=== PATIENT | male | born 1955 | race Caucasian/White ===

== ENCOUNTER → 2018-02-11 07:40 | Outpatient (CLI) | payer OTHER, SELFPAY ==
[2018-02-11 08:03] LABS: Add Manual Diff / Slide Review NO; Basophils Percent Auto 0.9 % (0-2); Hematocrit 43.7 % (41-53); Hemoglobin 14.8 g/dL (13.5-17.5); Lymphocytes Percent Auto 33.4 % (25-40); Mean Corpuscular HGB Conc 33.8 % (30-36); Mean Corpuscular Volume 88.7 fL (80-100); Monocytes Percent Auto 9.1 % (3-14); Neutrophils Absolute Auto 3600 /uL (3000-5900); Neutrophils Percent Auto 55.6 % (50-75); Platelet Count 252 X10^3/uL (150-400); Red Blood Cell Count 4.93 X10^6/uL (4.5-5.9); Red Cell Distribution Width 13.1 % (11.6-14.8); White Blood Cell Count 6.4 X10^3/uL (4.5-11.0)
[2018-02-11 09:27] LABS: Alanine Aminotransferase 27 IU/L (21-72); Albumin 4.4 g/dL (3.5-5.0); Albumin Globulin Ratio 1.6 (1.0-2.8); Alkaline Phosphatase 70 U/L (38-126); Aspartate Aminotransferase 23 IU/L (17-59); Bilirubin Total 0.5 mg/dL (0.2-1.3); Blood Urea Nitrogen 18 mg/dL (9-20); Calcium 9.4 mg/dL (8.4-10.2); Carbon Dioxide 32 mmol/L (22-32); Chloride 105 mmol/L (98-107); Cholesterol 166 mg/dL (140-199); Estimated Glomerular Filt Rate > 60.0 mL/min (>60); Globulin 2.7 g/dL (1.7-4.1); Glucose 89 mg/dL (80-110); HDL Cholesterol 57 mg/dL (40-60); HEMOLYSIS < 15 (0-50); LDL Cholesterol Calculated 93 mg/dL (<100); Potassium 5.3 mmol/L (3.4-5.1); Sodium 146 mmol/L (137-145); Total Protein 7.1 g/dL (6.3-8.2); Triglycerides 82 mg/dL (35-150)
[2018-02-11 09:57] LABS: Prostate Specific Antigen Scrn 7.65 ng/mL (0.1-4.0)
== END ==
PROVIDERS: PCP Family Medicine; Visit Provider Family Medicine
DX: E78.5 Hyperlipidemia, unspecified (principal); I10 Essential (primary) hypertension; N40.0 Benign prostatic hyperplasia without lower urinary tract symptoms; R97.20 Elevated prostate specific antigen [PSA]
CPT/HCPCS: 36415; 80053; 80061; 84443; 85025; G0103

== ENCOUNTER 2018-04-12 17:07 | Observation (INO) | payer OTHER, SELFPAY ==
[2018-04-12 17:11] VITALS: BP 148/86; PULSE 89; RESP 18; TEMP 36.8; O2SAT 98; BMI 25.2
--- NOTE | 2018-04-12 17:36 | ED.GIBLEED ---
HPI - GI Bleed <Shyla Elder PA-C - Last Filed: 04/12/18 17:38> General Chief complaint: GI Bleed Stated complaint: blood in bowel movement Time Seen by Provider: 04/12/18 17:36 Related Data Home Medications Medication Instructions Recorded Confirmed simvastatin 40 mg PO BEDTIME 04/12/18 04/12/18 Previous Rx's Medication Instructions Recorded clobetasol 0.05 % topical cream 0.05 % TOPICAL BID #30 gm 02/20/18 lisinopril 40 mg tablet 40 mg PO DAILY #90 tab 02/20/18 tamsulosin 0.4 mg capsule 0.4 mg PO QDAY #90 cap 02/20/18 Allergies Allergy/AdvReac Type Severity Reaction Status Date / Time No Known Drug Allergies Allergy Verified 04/12/18 17:15 <Cherelle Jackson DO - Last Filed: 04/12/18 19:55> General Source: patient Mode of arrival: ambulatory Limitations: no limitations History of Present Illness HPI Narrative: Patient is a 62 year old, who presents with rectal bleeding. He does have a history of colon polyps. He has had 2 episodes. 1 was just after dinner and the other was in the ED. He has felt well all day today. No fever chills nausea vomiting or abdominal pain. He has never had rectal bleeding in the past. He does get colonoscopies every 5 years he has family history of polyps and he has had polyps removed himself. But has never experienced any bleeding. He denies any dizziness lightheadedness or shortness of breath. He is not on any anti-platelet or anticoagulation medication MD complaint: gross hematochezia Onset (ago): hour(s) Severity: mild Relieving factors: none Exacerbating factors: none <DO Hermila Baer Last Filed: 04/12/18 19:55> Review of Systems All systems reviewed & are unremarkable except as noted in HPI and below Constitutional Denies chills, Denies fever(s), Denies lethargy and Denies weakness Cardiovascular Denies chest pain, Denies syncope, Denies irregular heart rhythm, Denies lightheadedness, Denies palpitations, Denies dyspnea and Denies orthopnea Respiratory Denies cough, Denies hemoptysis and Denies dyspnea Gastrointestinal Gastrointestinal: Reports as per HPI Musculoskeletal Denies back pain, Denies muscle weakness, Denies numbness and Denies tingling Integumentary/Breasts Denies pruritus, Denies erythema, Denies rash and Denies wounds Neurologic Denies syncope, Denies numbness, Denies tingling and Denies weakness Endocrine Denies palpitations Exam <ALMAZ Wyman Last Filed: 04/12/18 17:38> Initial Vital Signs Initial Vital Signs: Vital Signs Temperature 98.3 F 04/12/18 17:11 Pulse Rate 89 04/12/18 17:11 Respiratory Rate 18 04/12/18 17:11 Blood Pressure 148/86 H 04/12/18 17:11 Pulse Oximetry 98 04/12/18 17:11 <Cherelle Jackson DO - Last Filed: 04/12/18 19:55> Initial Vital Signs Initial Vital Signs: Vital Signs Temperature 98.3 F 04/12/18 17:11 Pulse Rate 89 04/12/18 17:11 Respiratory Rate 18 04/12/18 17:11 Blood Pressure 148/86 H 04/12/18 17:11 Pulse Oximetry 98 04/12/18 17:11 Const General: cooperative, healthy appearing and comfortable Nutritional Appearance: average body habitus Orientation: alert, awake and oriented x3 Eyes General: appearance normal, both eyes and all related structures Neck Neck: normal visual inspection, full ROM and no meningeal signs Chest Chest: normal inspection of the chest Resp Effort & Inspection: able to speak in complete sentences Auscultation: clear to auscultation bilaterally, no crackles, no rales and no rhonchi Cardio Rate: regular rate Rhythm: regular rhythm Heart Sounds: S1 normal and S2 normal GI Palpation: soft, No guarding, No rigid and No tender Skin General: no rashes or lesions noted, No jaundice and No petechiae Neuro General: alert, oriented x3, gait normal and no focal motor deficits Speech: speech normal Extrem General: normal to inspection, No clubbing and No edema Course <ALMAZ Wyman Last Filed: 04/12/18 17:38> Orders Ordered: ED Orders 04/12/18 17:50 Complete Blood Count AUTO DIFF Stat Comprehensive Metabolic Panel Stat Partial Thromboplastin Time Stat Prothrombin Time INR Stat Type and Screen Stat 04/12/18 17:55 Urine Microscopic Stat 04/12/18 18:17 Lactate (Lactic Acid) Stat Discontinued Medications Ondansetron HCl (Zofran) 4 mg IV NOW ONE Stop: 04/12/18 17:50 Last Admin: 04/12/18 18:17 Dose: Pantoprazole Sodium (Protonix) 40 mg IV NOW ONE Stop: 04/12/18 17:50 Last Admin: 04/12/18 18:17 Dose: 40 mg Vital Signs - 8 hr 04/12/18 17:11 04/12/18 18:03 04/12/18 19:19 Temperature 98.3 F Pulse Rate 89 82 75 Respiratory Rate 18 16 16 Blood Pressure 148/86 H Blood Pressure [Left Arm] 137/89 138/77 Pulse Oximetry 98 95 97 <Cherelle Jackson DO - Last Filed: 04/12/18 19:55> Orders Ordered: ED Orders 04/12/18 17:50 Complete Blood Count AUTO DIFF Stat Comprehensive Metabolic Panel Stat Partial Thromboplastin Time Stat Prothrombin Time INR Stat Type and Screen Stat 04/12/18 17:55 Urine Microscopic Stat 04/12/18 18:17 Lactate (Lactic Acid) Stat Discontinued Medications Ondansetron HCl (Zofran) 4 mg IV NOW ONE Stop: 04/12/18 17:50 Last Admin: 04/12/18 18:17 Dose: Pantoprazole Sodium (Protonix) 40 mg IV NOW ONE Stop: 04/12/18 17:50 Last Admin: 04/12/18 18:17 Dose: 40 mg Vital Signs - 8 hr 04/12/18 17:11 04/12/18 18:03 04/12/18 19:19 Temperature 98.3 F Pulse Rate 89 82 75 Respiratory Rate 18 16 16 Blood Pressure 148/86 H Blood Pressure [Left Arm] 137/89 138/77 Pulse Oximetry 98 95 97 MDM - GI Bleed <Shyla Elder PA-C - Last Filed: 04/12/18 17:38> Lab Data Result diagrams: 04/12/18 17:50 04/12/18 17:50 Lab Results 04/12/18 04/12/18 04/12/18 Range/Units 17:50 17:50 17:50 WBC 8.0 (4.5-11.0) X10^3/uL RBC 4.76 (4.5-5.9) X10^6/uL Hgb 14.4 (13.5-17.5) g/dL Hct 41.8 (41-53) % MCV 87.9 (80-100) fL MCH 30.3 (26-34) PG MCHC 34.5 (30-36) % RDW 13.2 (11.6-14.8) % Plt Count 272 (150-400) X10^3/uL Neut % (Auto) 59.5 (50-75) % Lymph % (Auto) 28.4 (25-40) % [place] % (Auto) 8.9 (3-14) % Eos % (Auto) 2.0 (2-4) % Baso % (Auto) 1.2 (0-2) % Neut # (Auto) 4800 (1619-6104) /uL PT 12.3 (10.1-12.7) SECONDS INR 1.1 (0.9-1.3) APTT 30 (26.4-36.2) SECONDS Sodium 141 (137-145) mmol/L Potassium 4.0 (3.4-5.1) mmol/L Chloride 104 (98-107) mmol/L Carbon Dioxide 26 (22-32) mmol/L BUN 15 (9-20) mg/dL Creatinine 1.00 (0.66-1.25) mg/dL Estimated GFR > 60.0 (>60) mL/min BUN/Creatinine Ratio 15.0 (6-22) Glucose 106 (80-110) mg/dL Lactate (0.7-2.1) mmol/L Calcium 8.8 (8.4-10.2) mg/dL Total Bilirubin 0.5 (0.2-1.3) mg/dL AST 35 (17-59) IU/L ALT 30 (21-72) IU/L Alkaline Phosphatase 89 (38-126) U/L Total Protein 7.3 (6.3-8.2) g/dL Albumin 4.4 (3.5-5.0) g/dL Globulin 2.9 (1.7-4.1) g/dL Albumin/Globulin Ratio 1.5 (1.0-2.8) Urine RBC (0-5/HPF) Urine WBC (0-5/HPF) Ur Squamous Epith Cells Urine Bacteria (None) Ur Culture Indicated? Micro UA Comment Blood Type Antibody Screen 04/12/18 04/12/18 04/12/18 Range/Units 17:50 17:55 18:17 WBC (4.5-11.0) X10^3/uL RBC (4.5-5.9) X10^6/uL Hgb (13.5-17.5) g/dL Hct (41-53) % MCV (80-100) fL MCH (26-34) PG MCHC (30-36) % RDW (11.6-14.8) % Plt Count (150-400) X10^3/uL Neut % (Auto) (50-75) % Lymph % (Auto) (25-40) % [place] % (Auto) (3-14) % Eos % (Auto) (2-4) % Baso % (Auto) (0-2) % Neut # (Auto) (9984-1174) /uL PT (10.1-12.7) SECONDS INR (0.9-1.3) APTT (26.4-36.2) SECONDS Sodium (137-145) mmol/L Potassium (3.4-5.1) mmol/L Chloride (98-107) mmol/L Carbon Dioxide (22-32) mmol/L BUN (9-20) mg/dL Creatinine (0.66-1.25) mg/dL Estimated GFR (>60) mL/min BUN/Creatinine Ratio (6-22) Glucose (80-110) mg/dL Lactate 1.3 (0.7-2.1) mmol/L Calcium (8.4-10.2) mg/dL Total Bilirubin (0.2-1.3) mg/dL AST (17-59) IU/L ALT (21-72) IU/L Alkaline Phosphatase (38-126) U/L Total Protein (6.3-8.2) g/dL Albumin (3.5-5.0) g/dL Globulin (1.7-4.1) g/dL Albumin/Globulin Ratio (1.0-2.8) Urine RBC 0-1/hpf (0-5/HPF) Urine WBC 0-1/hpf (0-5/HPF) Ur Squamous Epith Cells 0-1 /hpf Urine Bacteria None seen (None) Ur Culture Indicated? Cult not indicated Micro UA Comment Microscopic normal Blood Type O Positive Antibody Screen Negative Urine Dip Bedside Urine Glucose Negative Bedside Urine Bilirubin - Negative Bedside Urine Ketone - Negative Urine Specific [place] 1.015 Bedside Urine Occult Blood + Bedside Urine pH 6.0 Bedside Urine Protein - Negative Bedside Urine Urobilinogen - Negative Bedside Urine Nitrite - Negative Bedside Urine Leukocytes - Negative Esterase <Cherelle Renetta, DO - Last Filed: 04/12/18 19:55> Lab Data Attestation: I reviewed the patient's lab results. Lab Results 04/12/18 04/12/18 04/12/18 Range/Units 17:50 17:50 17:50 WBC 8.0 (4.5-11.0) X10^3/uL RBC 4.76 (4.5-5.9) X10^6/uL Hgb 14.4 (13.5-17.5) g/dL Hct 41.8 (41-53) % MCV 87.9 (80-100) fL MCH 30.3 (26-34) PG MCHC 34.5 (30-36) % RDW 13.2 (11.6-14.8) % Plt Count 272 (150-400) X10^3/uL Neut % (Auto) 59.5 (50-75) % Lymph % (Auto) 28.4 (25-40) % [place] % (Auto) 8.9 (3-14) % Eos % (Auto) 2.0 (2-4) % Baso % (Auto) 1.2 (0-2) % Neut # (Auto) 4800 (0330-9208) /uL PT 12.3 (10.1-12.7) SECONDS INR 1.1 (0.9-1.3) APTT 30 (26.4-36.2) SECONDS Sodium 141 (137-145) mmol/L Potassium 4.0 (3.4-5.1) mmol/L Chloride 104 (98-107) mmol/L Carbon Dioxide 26 (22-32) mmol/L BUN 15 (9-20) mg/dL Creatinine 1.00 (0.66-1.25) mg/dL Estimated GFR > 60.0 (>60) mL/min BUN/Creatinine Ratio 15.0 (6-22) Glucose 106 (80-110) mg/dL Lactate (0.7-2.1) mmol/L Calcium 8.8 (8.4-10.2) mg/dL Total Bilirubin 0.5 (0.2-1.3) mg/dL AST 35 (17-59) IU/L ALT 30 (21-72) IU/L Alkaline Phosphatase 89 (38-126) U/L Total Protein 7.3 (6.3-8.2) g/dL Albumin 4.4 (3.5-5.0) g/dL Globulin 2.9 (1.7-4.1) g/dL Albumin/Globulin Ratio 1.5 (1.0-2.8) Urine RBC (0-5/HPF) Urine WBC (0-5/HPF) Ur Squamous Epith Cells Urine Bacteria (None) Ur Culture Indicated? Micro UA Comment Blood Type Antibody Screen 04/12/18 04/12/18 04/12/18 Range/Units 17:50 17:55 18:17 WBC (4.5-11.0) X10^3/uL RBC (4.5-5.9) X10^6/uL Hgb (13.5-17.5) g/dL Hct (41-53) % MCV (80-100) fL MCH (26-34) PG MCHC (30-36) % RDW (11.6-14.8) % Plt Count (150-400) X10^3/uL Neut % (Auto) (50-75) % Lymph % (Auto) (25-40) % [place] % (Auto) (3-14) % Eos % (Auto) (2-4) % Baso % (Auto) (0-2) % Neut # (Auto) (5559-2470) /uL PT (10.1-12.7) SECONDS INR (0.9-1.3) APTT (26.4-36.2) SECONDS Sodium (137-145) mmol/L Potassium (3.4-5.1) mmol/L Chloride (98-107) mmol/L Carbon Dioxide (22-32) mmol/L BUN (9-20) mg/dL Creatinine (0.66-1.25) mg/dL Estimated GFR (>60) mL/min BUN/Creatinine Ratio (6-22) Glucose (80-110) mg/dL Lactate 1.3 (0.7-2.1) mmol/L Calcium (8.4-10.2) mg/dL Total Bilirubin (0.2-1.3) mg/dL AST (17-59) IU/L ALT (21-72) IU/L Alkaline Phosphatase (38-126) U/L Total Protein (6.3-8.2) g/dL Albumin (3.5-5.0) g/dL Globulin (1.7-4.1) g/dL Albumin/Globulin Ratio (1.0-2.8) Urine RBC 0-1/hpf (0-5/HPF) Urine WBC 0-1/hpf (0-5/HPF) Ur Squamous Epith Cells 0-1 /hpf Urine Bacteria None seen (None) Ur Culture Indicated? Cult not indicated Micro UA Comment Microscopic normal Blood Type O Positive Antibody Screen Negative Urine Dip Bedside Urine Glucose Negative Bedside Urine Bilirubin - Negative Bedside Urine Ketone - Negative Urine Specific [place] 1.015 Bedside Urine Occult Blood + Bedside Urine pH 6.0 Bedside Urine Protein - Negative Bedside Urine Urobilinogen - Negative Bedside Urine Nitrite - Negative Bedside Urine Leukocytes - Negative Esterase MDM Narrative Medical decision making narrative: Patient has a history of colon polyps with 2 episodes of bleeding this evening. He is hemodynamically stable. No further episodes while in the ED. Hemoglobin and hematocrit do not require blood transfusion at this time. Lactate is also within normal limits. He is given Protonix and Zofran. I have discussed case with Dr. Kent who agrees to observation. He will write orders. Discharge Plan Departure Patient Disposition: Admitted as Observation Clinical Impression: Acute GI bleeding Admit Date/Time: 04/12/18 19:15 Admit Provider: Scott Kent
[2018-04-12 18:03] VITALS: BP 137/89; PULSE 82; RESP 16; O2SAT 95
[2018-04-12 18:08] LABS: Add Manual Diff / Slide Review NO; Basophils Percent Auto 1.2 % (0-2); Hematocrit 41.8 % (41-53); Hemoglobin 14.4 g/dL (13.5-17.5); Lymphocytes Percent Auto 28.4 % (25-40); Mean Corpuscular HGB Conc 34.5 % (30-36); Mean Corpuscular Hemoglobin 30.3 PG (26-34); Mean Corpuscular Volume 87.9 fL (80-100); Monocytes Percent Auto 8.9 % (3-14); Neutrophils Absolute Auto 4800 /uL (3000-5900); Neutrophils Percent Auto 59.5 % (50-75); Platelet Count 272 X10^3/uL (150-400); Red Blood Cell Count 4.76 X10^6/uL (4.5-5.9); Red Cell Distribution Width 13.2 % (11.6-14.8)
[2018-04-12 18:16] LABS: INR 1.1 (0.9-1.3); Prothrombin Time 12.3 SECONDS (10.1-12.7)
[2018-04-12] MEDS: PANTOPRAZOLE 40 MG VIAL IV (18:17)
[2018-04-12 18:19] LABS: Alanine Aminotransferase 30 IU/L (21-72); Albumin 4.4 g/dL (3.5-5.0); Albumin Globulin Ratio 1.5 (1.0-2.8); Alkaline Phosphatase 89 U/L (38-126); Aspartate Aminotransferase 35 IU/L (17-59); Bilirubin Total 0.5 mg/dL (0.2-1.3); Blood Urea Nitrogen 15 mg/dL (9-20); Calcium 8.8 mg/dL (8.4-10.2); Carbon Dioxide 26 mmol/L (22-32); Chloride 104 mmol/L (98-107); Estimated Glomerular Filt Rate > 60.0 mL/min (>60); Globulin 2.9 g/dL (1.7-4.1); Glucose 106 mg/dL (80-110); HEMOLYSIS 23 (0-50); PTT Partial Thromboplastin Tim 30 SECONDS (26.4-36.2); Sodium 141 mmol/L (137-145); Total Protein 7.3 g/dL (6.3-8.2)
--- NOTE | 2018-04-12 18:22 | ED_ITS ---
HPI - GI Bleed General Chief complaint: GI Bleed Stated complaint: blood in bowel movement Time Seen by Provider: 04/12/18 17:36 Source: patient Mode of arrival: ambulatory Limitations: no limitations History of Present Illness HPI Narrative: Patient is a 62-year-old male presenting with blood in stool. He has a history of colon polyps he has colonoscopy every 3-5 years. He occasionally has on polyps removed. He is not on any anti-platelet or anticoagulation medication. He was feeling fine all day today. After dinner he thought he needed to use the restroom when he had some incontinence noted that it was mostly a blood. He denies any abdominal pain nausea vomiting or fevers. He is not dizzy or lightheaded no chest pain or heart palpitations. He had a 2nd episode once he arrived to the emergency department is dark. MD complaint: gross hematochezia Onset (ago): hour(s) Pain Consistency: intermittent Severity: mild Related Data Home Medications Medication Instructions Recorded Confirmed simvastatin 40 mg PO BEDTIME 04/12/18 04/12/18 Previous Rx's Medication Instructions Recorded clobetasol 0.05 % topical cream 0.05 % TOPICAL BID #30 gm 02/20/18 lisinopril 40 mg tablet 40 mg PO DAILY #90 tab 02/20/18 tamsulosin 0.4 mg capsule 0.4 mg PO QDAY #90 cap 02/20/18 Allergies Allergy/AdvReac Type Severity Reaction Status Date / Time No Known Drug Allergies Allergy Verified 04/12/18 17:15 Review of Systems Review of Systems All systems reviewed & are unremarkable except as noted in HPI and below Constitutional Denies chills, Denies fever(s), Denies lethargy and Denies weakness ENT Ears, Nose, Mouth, and Throat: Denies vertigo and Denies dizziness Cardiovascular Denies chest pain, Denies irregular heart rhythm, Denies lightheadedness, Denies palpitations and Denies orthopnea Gastrointestinal Gastrointestinal: Reports as per HPI Musculoskeletal Denies back pain, Denies muscle weakness, Denies numbness and Denies tingling Integumentary/Breasts Denies pruritus, Denies erythema, Denies rash and Denies wounds Neurologic Denies vertigo, Denies dizziness, Denies numbness, Denies tingling and Denies weakness Endocrine Denies palpitations [facility] Medical History Colon polyps (Chronic ~2000) Hay fever (Chronic) Hemorrhoid (Chronic ~1989) High cholesterol (Chronic) Kidney stones (Chronic ~1987) Retinal detachment (Chronic ~2006) Sleep apnea (Chronic) Chicken pox (Resolved) Measles (Resolved) Mumps (Resolved) Plantar warts (Resolved) Shingles (Resolved ~1997) Surgical History Anesthesia (Resolved) H/O prostate biopsy (Resolved ~02/05/10) Lipoma (Resolved ~02/07/96) History of tonsillectomy Family History Child Age: 36 Raynauds syndrome Father Age: 91 Dementia Mother Cancer Heart disease Hypertension High cholesterol Sister Age: 69 High cholesterol Social History household members: spouse Smoking Status: Never smoker alcohol intake: current Exam Initial Vital Signs Initial Vital Signs: Vital Signs Temperature 98.3 F 04/12/18 17:11 Pulse Rate 89 04/12/18 17:11 Respiratory Rate 18 04/12/18 17:11 Blood Pressure 148/86 H 04/12/18 17:11 Pulse Oximetry 98 04/12/18 17:11 Const General: cooperative and comfortable Orientation: alert, awake and oriented x3 Eyes General: appearance normal, both eyes and all related structures Neck Neck: normal visual inspection and full ROM Chest Chest: normal inspection of the chest Resp Effort & Inspection: able to speak in complete sentences Auscultation: clear to auscultation bilaterally, no rales and no rhonchi Cardio Rate: regular rate Rhythm: regular rhythm Heart Sounds: S1 normal and S2 normal GI Palpation: soft, No rigid and No tender Skin General: no rashes or lesions noted, No mottling, No purpura, No pallor and warm Neuro General: alert, awake, oriented x3 and CN's II-XI intact bilaterally Extrem General: full ROM, no clubbing, cyanosis or edema, no pedal edema and no calf tenderness Course Orders Ordered: ED Orders 04/12/18 17:50 Complete Blood Count AUTO DIFF Stat Comprehensive Metabolic Panel Stat Partial Thromboplastin Time Stat Prothrombin Time INR Stat Type and Screen Stat 04/12/18 17:55 Urine Microscopic Stat 04/12/18 18:17 Lactate (Lactic Acid) Stat 04/12/18 20:19 Education, smoking cessation ONGOING 04/13/18 05:00 Basic Metabolic Panel Routine Complete Blood Count AUTO DIFF Routine Acetaminophen (Tylenol) 650 mg PO Q6HR PRN PRN Reason: As Needed for Fever/Mild Pain Sodium Chloride (Normal Saline 0.45%) 1,000 mls @ 100 mls/hr IV CONT ANGELLA Last Admin: 04/12/18 20:36 Dose: 100 mls/hr Lisinopril (Zestril) 40 mg PO DAILY ANGELLA Ondansetron HCl (Zofran) 4 mg IV Q8HR PRN PRN Reason: Nausea And Vomiting Pantoprazole Sodium (Protonix) 40 mg IV BID ANGELLA Simvastatin (Zocor) 40 mg PO BEDTIME ANGELLA Sodium Chloride (Normal Saline 0.9% Flush) 10 ml IV PRN PRN PRN Reason: Flush Tamsulosin HCl (Flomax) 0.4 mg PO DAILY ANGELLA Discontinued Medications Ondansetron HCl (Zofran) 4 mg IV NOW ONE Stop: 04/12/18 17:50 Last Admin: 04/12/18 18:17 Dose: Pantoprazole Sodium (Protonix) 40 mg IV NOW ONE Stop: 04/12/18 17:50 Last Admin: 04/12/18 18:17 Dose: 40 mg Vital Signs - 8 hr 04/12/18 17:11 04/12/18 18:03 04/12/18 19:19 Temperature 98.3 F Pulse Rate 89 82 75 Respiratory Rate 18 16 16 Blood Pressure 148/86 H Blood Pressure [Left Arm] 137/89 138/77 Pulse Oximetry 98 95 97 04/12/18 20:08 04/12/18 20:24 Temperature Pulse Rate 77 75 Respiratory Rate 16 16 Blood Pressure 140/84 146/92 H Blood Pressure [Left Arm] Pulse Oximetry 96 97 MDM - GI Bleed Lab Data Attestation: I reviewed the patient's lab results. Result diagrams: 04/12/18 17:50 04/12/18 17:50 Lab Results 04/12/18 04/12/18 04/12/18 Range/Units 17:50 17:50 17:50 WBC 8.0 (4.5-11.0) X10^3/uL RBC 4.76 (4.5-5.9) X10^6/uL Hgb 14.4 (13.5-17.5) g/dL Hct 41.8 (41-53) % MCV 87.9 (80-100) fL MCH 30.3 (26-34) PG MCHC 34.5 (30-36) % RDW 13.2 (11.6-14.8) % Plt Count 272 (150-400) X10^3/uL Neut % (Auto) 59.5 (50-75) % Lymph % (Auto) 28.4 (25-40) % [place] % (Auto) 8.9 (3-14) % Eos % (Auto) 2.0 (2-4) % Baso % (Auto) 1.2 (0-2) % Neut # (Auto) 4800 (6413-1086) /uL PT 12.3 (10.1-12.7) SECONDS INR 1.1 (0.9-1.3) APTT 30 (26.4-36.2) SECONDS Sodium 141 (137-145) mmol/L Potassium 4.0 (3.4-5.1) mmol/L Chloride 104 (98-107) mmol/L Carbon Dioxide 26 (22-32) mmol/L BUN 15 (9-20) mg/dL Creatinine 1.00 (0.66-1.25) mg/dL Estimated GFR > 60.0 (>60) mL/min BUN/Creatinine Ratio 15.0 (6-22) Glucose 106 (80-110) mg/dL Lactate (0.7-2.1) mmol/L Calcium 8.8 (8.4-10.2) mg/dL Total Bilirubin 0.5 (0.2-1.3) mg/dL AST 35 (17-59) IU/L ALT 30 (21-72) IU/L Alkaline Phosphatase 89 (38-126) U/L Total Protein 7.3 (6.3-8.2) g/dL Albumin 4.4 (3.5-5.0) g/dL Globulin 2.9 (1.7-4.1) g/dL Albumin/Globulin Ratio 1.5 (1.0-2.8) Urine RBC (0-5/HPF) Urine WBC (0-5/HPF) Ur Squamous Epith Cells Urine Bacteria (None) Ur Culture Indicated? Micro UA Comment Blood Type Antibody Screen 04/12/18 04/12/18 04/12/18 Range/Units 17:50 17:55 18:17 WBC (4.5-11.0) X10^3/uL RBC (4.5-5.9) X10^6/uL Hgb (13.5-17.5) g/dL Hct (41-53) % MCV (80-100) fL MCH (26-34) PG MCHC (30-36) % RDW (11.6-14.8) % Plt Count (150-400) X10^3/uL Neut % (Auto) (50-75) % Lymph % (Auto) (25-40) % [place] % (Auto) (3-14) % Eos % (Auto) (2-4) % Baso % (Auto) (0-2) % Neut # (Auto) (0762-0888) /uL PT (10.1-12.7) SECONDS INR (0.9-1.3) APTT (26.4-36.2) SECONDS Sodium (137-145) mmol/L Potassium (3.4-5.1) mmol/L Chloride (98-107) mmol/L Carbon Dioxide (22-32) mmol/L BUN (9-20) mg/dL Creatinine (0.66-1.25) mg/dL Estimated GFR (>60) mL/min BUN/Creatinine Ratio (6-22) Glucose (80-110) mg/dL Lactate 1.3 (0.7-2.1) mmol/L Calcium (8.4-10.2) mg/dL Total Bilirubin (0.2-1.3) mg/dL AST (17-59) IU/L ALT (21-72) IU/L Alkaline Phosphatase (38-126) U/L Total Protein (6.3-8.2) g/dL Albumin (3.5-5.0) g/dL Globulin (1.7-4.1) g/dL Albumin/Globulin Ratio (1.0-2.8) Urine RBC 0-1/hpf (0-5/HPF) Urine WBC 0-1/hpf (0-5/HPF) Ur Squamous Epith Cells 0-1 /hpf Urine Bacteria None seen (None) Ur Culture Indicated? Cult not indicated Micro UA Comment Microscopic normal Blood Type O Positive Antibody Screen Negative Urine Dip Bedside Urine Glucose Negative Bedside Urine Bilirubin - Negative Bedside Urine Ketone - Negative Urine Specific [place] 1.015 Bedside Urine Occult Blood + Bedside Urine pH 6.0 Bedside Urine Protein - Negative Bedside Urine Urobilinogen - Negative Bedside Urine Nitrite - Negative Bedside Urine Leukocytes - Negative Esterase MDM Narrative Medical decision making narrative: Patient is hemodynamically stable. No further episodes of GI bleeding in the ED. BUN and creatinine ratio within normal limits do not suspect upper GI bleed at this time. Although he has been given Protonix and Zofran. Based on his history of colon polyps reasonable to admit patient to observation possible colonoscopy. Patient says that he is due for and some of 2018. Dr. Kent has been obtained patient's symptoms test results. Agrees with observation. Discharge Plan Departure Patient Disposition: Admitted as Observation Clinical Impression: Acute GI bleeding Discharge Date/Time: 04/12/18 20:14 Interventions: ED Discharge Assessment Last Done: 04/12/18 20:08 Admit Date/Time: 04/12/18 19:15 Admit Provider: Scott Kent
[2018-04-12 18:37] LABS: Bacteria Urine None Seen
[2018-04-12 18:38] LABS: Lactate (Lactic Acid) 1.3 mmol/L (0.7-2.1)
[2018-04-12 18:41] LABS: Culture Indicated Urine Cult Not Indicated; RBC Urine 0-1/HPF (0-5/HPF); Squamous Epithelial Cell Urine 0-1 /HPF; Urine Comments Microscopic Normal; WBC Urine 0-1/HPF (0-5/HPF)
[2018-04-12 19:19] VITALS: BP 138/77; PULSE 75; RESP 16; O2SAT 97
[2018-04-12 20:08] VITALS: BP 140/84; PULSE 77; RESP 16; O2SAT 96
[2018-04-12 20:24] VITALS: BP 146/92; PULSE 75; RESP 16; O2SAT 97
[2018-04-12] MEDS: SODIUM CHLORIDE 0.45% 1,000 ML 100 ML IV (20:36)
[2018-04-12 20:39] VITALS: BMI 25.6
--- NOTE | 2018-04-12 21:27 | PC.NURSE ---
ADMISSION received pt via [place], accompanied by ED CRUSHING MACHINE OPERATOR at approximately 2020. A&Ox3, plewsasant and cooperative with care. modified independent with ADLs. last bloody stool in ED. pt without complaints, denies any N/V or abdominal pain/discomfort. tele monitoring maintained. oriented pt to room. call light within reach.
[2018-04-12] MEDS: SIMVASTATIN 40 MG TABLET PO (21:42)
[2018-04-12] MEDS: TAMSULOSIN 0.4 MG CAPSULE PO (21:43)
[2018-04-13] VITALS (9 sets, daily range): BP systolic 126–144; BP diastolic 80–92; PULSE 66–76; RESP 15–20; TEMP 36.6–36.9; O2SAT 95–98
--- NOTE | 2018-04-13 01:39 | PC.NURSE ---
[employer] Officer Note: 0000: Pt sleeping; not disturbed at this time. IV in place in rt AC with 1/2ns infusing at 100cc/hr. 0130: Awake, sba to bathroom. Alert, oriented X3. Steady on his feet. Pt did not have bowel movement or any rectal bleeding. Voided. Pt denies pain.
[2018-04-13 05:48] LABS: Add Manual Diff / Slide Review NO; Basophils Percent Auto 1.3 % (0-2); Eosinophils Percent Auto 2.3 % (2-4); Hematocrit 38.4 % (41-53); Hemoglobin 12.9 g/dL (13.5-17.5); Lymphocytes Percent Auto 30.6 % (25-40); Mean Corpuscular HGB Conc 33.7 % (30-36); Mean Corpuscular Hemoglobin 29.7 PG (26-34); Mean Corpuscular Volume 88.3 fL (80-100); Monocytes Percent Auto 11.1 % (3-14); Neutrophils Absolute Auto 4100 /uL (3000-5900); Neutrophils Percent Auto 54.7 % (50-75); Platelet Count 236 X10^3/uL (150-400); Red Blood Cell Count 4.34 X10^6/uL (4.5-5.9); Red Cell Distribution Width 13.1 % (11.6-14.8); White Blood Cell Count 7.5 X10^3/uL (4.5-11.0)
[2018-04-13 05:56] LABS: BUN Creatinine Ratio 13.3 (6-22); Blood Urea Nitrogen 12 mg/dL (9-20); Calcium 8.2 mg/dL (8.4-10.2); Carbon Dioxide 28 mmol/L (22-32); Chloride 105 mmol/L (98-107); Estimated Glomerular Filt Rate > 60.0 mL/min (>60); Glucose 93 mg/dL (80-110); HEMOLYSIS < 15 (0-50); Sodium 140 mmol/L (137-145)
[2018-04-13] MEDS: SODIUM CHLORIDE 0.45% 1,000 ML 100 ML IV (07:41)
--- NOTE | 2018-04-13 09:10 | PM.HP.1 ---
History of Present Illness Date Patient Seen: 04/13/18 Time Patient Seen: 09:11 Chief complaint: blood in bowel movement Narrative: Patient presented to the [facility] Emergency Department on the day of admission with complaints of blood in the stool. Patient knows he has colonic polyps in receives colonoscopy periodically because of this. He has had polyps removed. Last colonoscopy was January 2014. No diverticular disease was noted on that colonoscopy per the report. Previous colonoscopy in 2008 also did not list diverticular disease as a finding. He had some rectal urgency went to the bathroom and noticed it was mostly blood. Denies any abdominal pain nausea vomiting fevers chills. Denies any dizziness lightheadedness etc. Patient had a 2nd episode of blood in the toilet while in the emergency department. He has had 2 more small volume bleeds each 1 darker than the last. Current material in the hat in the toilet is sort of the standard black current jelly consistency and appearance Patient History Medical History Allergic rhinitis, unspecified (Chronic 01/09/11) History of adenomatous polyp of colon (Inactive) Hay fever (Chronic) Sleep apnea (Chronic) Right-sided sensorineural hearing loss (Chronic) Macular degeneration (Chronic) Essential hypertension (Chronic) Hyperlipidemia (Chronic 01/09/11) Benign prostatic hyperplasia (Chronic 01/10/11) Elevated prostate specific antigen (PSA) (Chronic 02/19/17) History of kidney stones (Inactive) Chicken pox (Resolved) Hemorrhoid (Resolved ~1989) Kidney stones (Resolved ~1987) Measles (Resolved) Mumps (Resolved) Plantar warts (Resolved) Retinal detachment (Resolved ~2006) Shingles (Resolved ~1997) Surgical History Anesthesia (Resolved) H/O prostate biopsy (Resolved ~02/05/10) Lipoma (Resolved ~02/07/96) History of tonsillectomy Family & Social History Family History: Reviewed 04/13/18 by Scott Kent MD Social History: household members spouse Prior Living Arrangements House Safety & Behavioral: Feels Safe in Current Yes Environment Been Physically Hurt or No Threatened By a Person Suicidal Ideation Description None Suicide Plan Description No Plan Tobacco & Substance use: Smoking Status Never smoker alcohol intake current alcohol intake frequency a few times a month Substance Use Type does not use Meds Home Medications Medication Instructions Recorded Confirmed Type clobetasol 0.05 % topical cream 0.05 % TOPICAL BID #30 gm 02/20/18 Rx lisinopril 40 mg tablet 40 mg PO DAILY #90 tab 02/20/18 04/12/18 Rx tamsulosin 0.4 mg capsule 0.4 mg PO QDAY #90 cap 02/20/18 04/12/18 Rx simvastatin 40 mg PO BEDTIME 04/12/18 04/12/18 History Allergies Allergy/AdvReac Type Severity Reaction Status Date / Time No Known Drug Allergies Allergy Verified 04/12/18 17:15 Review of Systems Constitutional Constitutional: Denies excessive sweating, Denies fever(s), Denies headache(s), Denies weakness, Denies weight gain and Denies weight loss Eyes Eyes: Denies change in vision, Denies itchy eyes, Denies loss of vision and Denies other visual disturbances ENT Ears, Nose, Mouth, and Throat: No headache(s) and No neck pain Cardiovascular Cardiovascular: Denies chest pain, Denies fainting, Denies fast heart rate, Denies irregular heart rhythm, Denies rapid, pounding, or irregular heartbeat, Denies shortness of breath, Denies shortness of breath with activity and Denies slow heart rate Respiratory Respiratory: Denies dyspnea and Denies dyspnea on exertion Gastrointestinal Gastrointestinal: Denies abdominal pain, Reports hematochezia, Reports change in bowel habits, Denies heartburn, Denies nausea, Denies vomiting and Denies hematemesis Genitourinary Genitourinary: Denies hematuria, Denies difficulty urinating and Denies urinary frequency Musculoskeletal Musculoskeletal: Denies abnormal gait, Denies myalgias, Denies arthralgias, Denies limited range of motion and Denies neck pain Integumentary/Breasts Skin/Breast: Denies bleeding lesions, Denies change in pigmentation, Denies changing lesions, Denies new lesions, Denies rash, Denies skin swelling, Denies sores and Denies jaundice Neurologic Neurologic: Denies abnormal gait, Denies behavioral changes, Denies confusion, Denies syncope, Denies headache(s), Denies loss of vision, Denies memory loss and Denies weakness Psychiatric Psychiatric: Denies behavioral changes, Denies change in appetite, Denies confusion, Denies difficulty concentrating, Denies auditory hallucinations, Denies memory loss, Denies mood swings and Denies suicidal ideation Endocrine Endocrine: Denies excessive sweating and Denies palpitations Hematologic/Lymphatic Hematologic/Lymphatic: Denies easy bleeding, Denies easy bruising and Denies lymphadenopathy Allergic/Immunologic Allergic/Immunologic: Denies itchy eyes Exam Vital Signs (past 8 hours): - 04/13/18 01:45 04/13/18 04:34 04/13/18 07:38 Temperature 98.1 F 98.2 F 97.9 F Pulse Rate 66 71 76 Respiratory Rate 20 20 16 Blood Pressure 127/80 144/90 H 140/92 H Pulse Oximetry 98 96 96 04/13/18 07:53 Temperature Pulse Rate Respiratory Rate Blood Pressure Pulse Oximetry 97 Oxygen Delivery Method Room Air Oxygen Flow Rate 0 Const General: cooperative, healthy appearing, comfortable, well developed and well groomed Nutritional Appearance: well nourished Orientation: alert, awake and oriented x3 HENMT Head: normocephalic, atraumatic, No cyanosis of lips/distal nose, No raccoon eyes and No periorbital ecchymosis Ears: hearing grossly normal bilaterally and external ears normal Nose: external nose normal and nares normal Face and sinus: normal facial exam and face symmetric Mouth: oral mucosae normal, lip normal and tongue normal Eyes Alignment and Position: alignment normal Periorbital: periorbital findings normal Eyelids: eyelids normal Conjunctivae: conjunctivae normal Sclera: sclerae normal Cornea: corneas normal Pupils: PERRL EOM: EOM intact bilaterally Neck Neck: normal visual inspection, full ROM, trachea midline and No anterior neck swelling Thyroid: not diffusely enlarged Carotids: normal carotid upstroke Lymphatic: No lymphadenopathy Chest Chest: normal inspection of the chest, No crepitus and No tenderness Breast inspection: normal inspection of the breasts Resp Effort & Inspection: normal respiratory effort, able to speak in complete sentences, no audible wheezes, no cough, no retractions and not tachypneic Auscultation: clear to auscultation bilaterally, no rales, no rhonchi, no wheezes and no rubs Percussion: percussion normal Tactile Fremitus: tactile fremitus absent Cardio Palpation: normal PMI Rate: regular rate Rhythm: regular rhythm Heart Sounds: S1 normal, S2 normal and normal, physiologic split S2 Bruits: no carotid bruits Pulses: brachial pulses present and radial pulses present GI Inspection: normal to inspection Palpation: soft and no hepatosplenomegaly Percussion: normal to percussion Auscultation: normal bowel sounds Back/Spine/Pelvis Back: No CVA tenderness Cervical Spine: normal cervical lordosis Thoracic/Lumbar Spine: thoracic and lumbar spine normal to inspection Skin General: no rashes or lesions noted, No excoriations, No induration, No jaundice, No mottling and No petechiae Lesions: no lesions (no worrisome/abl lesions) Rashes: no rashes Trauma: no lacerations or abrasions Wounds: no wounds Hair: normal Neuro General: alert, awake, oriented x3, tone normal and normal light touch, pain and propioception Cranial Nerves: CN's II-XI intact bilaterally Cognition: normal cognition Speech: speech normal Motor: muscle tone normal throughout Sensory Exam: no sensory deficits noted DTR's: Rt Biceps: 2+, Lt Biceps: 2+, Rt Brachioradialis: 2+, Lt Brachioradialis: 2+, Rt Patellar: 2+ and Lt Patellar: 2+ Extrem General: normal to inspection, no clubbing, cyanosis or edema and No calf tenderness Right upper extremity: normal to inspection Left upper extremity: normal to inspection Right lower extremity: normal to inspection Left lower extremity: normal to inspection Psych Appearance: grossly normal Mental Status: mental status grossly normal Speech and Movement: speech and movement normal and speech clear Mood: congruent mood Affect: normal affect Attitude: cooperative Thought Process: normal Thought Content: normal Judgment: judgment good Objective Labs Result Diagrams: 04/13/18 05:20 04/13/18 05:20 Labs: Laboratory Results - last 24 hr 04/12/18 04/12/18 04/12/18 17:50 17:50 17:50 WBC 8.0 RBC 4.76 Hgb 14.4 Hct 41.8 MCV 87.9 MCH 30.3 MCHC 34.5 RDW 13.2 Plt Count 272 Neut % (Auto) 59.5 Lymph % (Auto) 28.4 Toombs % (Auto) 8.9 Eos % (Auto) 2.0 Baso % (Auto) 1.2 Neut # (Auto) 4800 PT 12.3 INR 1.1 APTT 30 Sodium 141 Potassium 4.0 Chloride 104 Carbon Dioxide 26 BUN 15 Creatinine 1.00 Estimated GFR > 60.0 BUN/Creatinine Ratio 15.0 Glucose 106 Lactate Calcium 8.8 Total Bilirubin 0.5 AST 35 ALT 30 Alkaline Phosphatase 89 Total Protein 7.3 Albumin 4.4 Globulin 2.9 Albumin/Globulin Ratio 1.5 Urine RBC Urine WBC Ur Squamous Epith Cells Urine Bacteria Ur Culture Indicated? Micro UA Comment Blood Type Antibody Screen 04/12/18 04/12/18 04/12/18 17:50 17:55 18:17 WBC RBC Hgb Hct MCV MCH MCHC RDW Plt Count Neut % (Auto) Lymph % (Auto) Toombs % (Auto) Eos % (Auto) Baso % (Auto) Neut # (Auto) PT INR APTT Sodium Potassium Chloride Carbon Dioxide BUN Creatinine Estimated GFR BUN/Creatinine Ratio Glucose Lactate 1.3 Calcium Total Bilirubin AST ALT Alkaline Phosphatase Total Protein Albumin Globulin Albumin/Globulin Ratio Urine RBC 0-1/hpf Urine WBC 0-1/hpf Ur Squamous Epith Cells 0-1 /hpf Urine Bacteria None seen Ur Culture Indicated? Cult not indicated Micro UA Comment Microscopic normal Blood Type O Positive Antibody Screen Negative 04/13/18 04/13/18 05:20 05:20 WBC 7.5 RBC 4.34 L Hgb 12.9 L Hct 38.4 L MCV 88.3 MCH 29.7 MCHC 33.7 RDW 13.1 Plt Count 236 Neut % (Auto) 54.7 Lymph % (Auto) 30.6 Toombs % (Auto) 11.1 Eos % (Auto) 2.3 Baso % (Auto) 1.3 Neut # (Auto) 4100 PT INR APTT Sodium 140 Potassium 4.0 Chloride 105 Carbon Dioxide 28 BUN 12 Creatinine 0.90 Estimated GFR > 60.0 BUN/Creatinine Ratio 13.3 Glucose 93 Lactate Calcium 8.2 L Total Bilirubin AST ALT Alkaline Phosphatase Total Protein Albumin Globulin Albumin/Globulin Ratio Urine RBC Urine WBC Ur Squamous Epith Cells Urine Bacteria Ur Culture Indicated? Micro UA Comment Blood Type Antibody Screen Assessment & Plan Plan: Assessment/Plan Narrative: 1. Acute GI bleed likely lower in source based on but red blood seen at time of exam per ER physician. Initial blood count quite stable drop somewhat with some IV hydration overnight. Does continue to have bloody output via rectum. Most likely source would be diverticuli that either were not seen at time of previous colonoscopy or have developed in the 4 years since then. Less likely would be things such as AV malformations tumors or additional large polyps etc. This does not appear to be infectious etiology. Less likely would be an upper GI source. His bright red blood start with would argue against that even though it has turned darker color as time has gone by. I surmise that is because of lesser volume and longer exposure to the GI tract causing the changes. At this point if he remains relatively stable without evidence of massive bleeding he can likely be discharged home with plans for close follow-up and outpatient colonoscopy. If he shows evidence of large volume bleeding then will need colonoscopy before discharge. Continue to monitor him here in the hospital for now until he stops having bloody output and were more confident about his blood counts together with his output. 2. Hypertension-continue patient's usual meds 3. Hyperlipidemia-continue patient's usual meds 4. VTE prophylaxis-given bleeding patient is not a candidate for any anticoagulation. Sequential compression devices would be appropriate. Quality VTE Deep Vein Thrombosis/Pulmonary Embolism Present on Admission: No
--- NOTE | 2018-04-13 09:25 | CM.DANOTE ---
DCP: Case received, EMR reviewed and met with patient. Introduced self and role. DCP template completed with information currently available. Patient is a 62 year old male who admitted yesterday afternoon to the care of the hospitalist team. PCP: Dr. Jasmine. Payer: confirmed: [facility]. Patient came to hospital with symptoms of blood in his stool. Stated that he has a history of polyops. Patient alert and oriented, independent at home. Lives with spouse. Patient is wanting to find out why he is having this bleeding. P: Patient is to go home when stable. Fozia Nunez RN/[employer] Operator
[2018-04-13] MEDS: LISINOPRIL 20 MG TABLET 40 MG PO (09:53)
[2018-04-13] MEDS: PANTOPRAZOLE 40 MG VIAL IV ×2 (09:55→20:42)
--- NOTE | 2018-04-13 13:20 | PC.NURSE ---
Shift summary: Alert and oriented X3. Denies shortness of breath, dizziness or lightheadedness. Has had 2 episodes of bloody stools this shift. The first was <50 ml and was sabrina blood. The second was approx. 200 ml of reddish brown stool (definitely guaiac +). Dr Kent saw the second stool. Tolerating clear liquids without issue. Denies abd pain or discomfort. BT+, abd soft and nontender. Voiding WNL. Lab here now to draw 1300 H/H as ordered. Patient up in room independently, gait steady.
[2018-04-13 13:37] LABS: Hematocrit 41.4 % (41-53)
[2018-04-13] MEDS: TAMSULOSIN 0.4 MG CAPSULE PO (20:42)
[2018-04-13] MEDS: SIMVASTATIN 40 MG TABLET PO (20:42)
[2018-04-14 01:53] VITALS: O2SAT 98
--- NOTE | 2018-04-14 01:56 | PC.NURSE ---
Api Architect Note: 0130: Awake, resting in bed. Pt denies pain or discomfort, or nausea. Abdomen is soft and nontender. Pt remains on telemetry. IV in place in rt forearm, with 1/2NS infusing at 100cc/hr.
[2018-04-14 04:10] VITALS: BP 130/84; PULSE 71; RESP 16; TEMP 36.9; O2SAT 96
[2018-04-14 05:40] LABS: Hematocrit 37.9 % (41-53); Hemoglobin 12.7 g/dL (13.5-17.5)
[2018-04-14 05:49] LABS: Blood Urea Nitrogen 8 mg/dL (9-20); Calcium 8.4 mg/dL (8.4-10.2); Carbon Dioxide 27 mmol/L (22-32); Chloride 105 mmol/L (98-107); Estimated Glomerular Filt Rate > 60.0 mL/min (>60); Glucose 93 mg/dL (80-110); HEMOLYSIS < 15 (0-50); Potassium 4.1 mmol/L (3.4-5.1); Sodium 141 mmol/L (137-145)
[2018-04-14 07:35] VITALS: BP 148/89; PULSE 75; RESP 18; TEMP 36.6; O2SAT 96
[2018-04-14] MEDS: LISINOPRIL 20 MG TABLET 40 MG PO (07:58)
[2018-04-14] MEDS: SODIUM CHLORIDE 0.45% 1,000 ML 100 ML IV (07:58)
[2018-04-14] MEDS: PANTOPRAZOLE 40 MG VIAL IV (07:58)
[2018-04-14] MEDS: SODIUM CHLORIDE 0.9% FLUSH 10 ML IV (07:58)
[2018-04-14 08:55] VITALS: O2SAT 97
--- NOTE | 2018-04-14 09:25 | PC.NURSE ---
Addendum entered by Hanna Fernandez R.N. 04/14/18 13:05: Discharge home: IV dc'd intact. Tele dc'd. Reviewed all d/c instructions thoroughly with patient and his . They verbalized understanding and voiced no further questions. Confirmed with Dr Kent (prior to patient leaving) that he did not intend to send patient home on Protonix and patient was made aware. They will call & schedule follow up with Dr Jasmine within 1 week. All belongings sent with patient. Walked out to private vehicle accompanied by nursing staff. Original Note: Shift summary: Awake and alert, oriented X3. H/H 12.7/37.9 this morning. Denies dizziness, lightheadedness or SOB. Up independently, gait steady. No bloody stools overnight and none so far this morning. Denies pain, nausea or any other complaints. Tolerating clear liquids. BT+, abd soft and nontender. Flatus+. Able to make needs known and calls appropriately. Light in reach.
--- NOTE | 2018-04-14 10:25 | P.DS_ITS ---
History of Present Illness Chief complaint: blood in bowel movement Narrative: Patient presented to the [facility] Emergency Department on the day of admission with complaints of blood in the stool. Patient knows he has colonic polyps in receives colonoscopy periodically because of this. He has had polyps removed. Last colonoscopy was January 2014. No diverticular disease was noted on that colonoscopy per the report. Previous colonoscopy in 2008 also did not list diverticular disease as a finding. He had some rectal urgency went to the bathroom and noticed it was mostly blood. Denies any abdominal pain nausea vomiting fevers chills. Denies any dizziness lightheadedness etc. Patient had a 2nd episode of blood in the toilet while in the emergency department. He has had 2 more small volume bleeds each 1 darker than the last. Current material in the hat in the toilet is sort of the standard black current jelly consistency and appearance Discharge Providers Date of admission: 04/12/18 19:15 Primary care physician: Donald Jasmine MD Discharge provider: Scott Kent MD Discharge Date: 04/14/18 Summary Discharge Diagnosis: 1. Lower GI bleed, more likely than not diverticular 2. Acute blood loss anemia 3. Hypertension 4. History colonic adenoma Hospital Course: Patient admitted to the hospital because of bright red blood per rectum. Patient was hemodynamically stable initially and hemoglobin and hematocrit remained stable. He had further output of bloody to very dark jelly- like material over the 1st 12 hr during his hospitalization then had no further output Blood counts dropped and he became minimally anemic but no evidence of large volume bleeding and no clear trend with his blood counts. Patient did not develop any abdominal symptoms whatsoever Therefore he was felt to be stable from a presumed diverticular bleeding source without evidence of large volume bleed or significant hemodynamic instability. Therefore it was felt to be safe to discharge home to proceed with an outpatient colonoscopy which you was nearly due for on the basis of his known history of colonic adenomas anyway. The patient has evidence of larger volume bleeding with large volume stool output etc he will return for re-evaluation but that seems unlikely at this point Status at Discharge Cognitive/behavioral status at discharge: Back to baseline Functional status at discharge: independent ambulation Overall status at discharge: patient is back to baseline Exam Vital Signs (past 8 hours): - 04/14/18 04:10 04/14/18 07:35 04/14/18 08:55 Temperature 98.5 F 97.8 F Pulse Rate 71 75 Respiratory Rate 16 18 Blood Pressure 130/84 148/89 H Pulse Oximetry 96 96 97 Oxygen Delivery Method Room Air Oxygen Flow Rate 0 Const General: cooperative, comfortable, well developed and well hydrated Nutritional Appearance: well nourished Orientation: alert, awake and oriented x3 HENMT Head: normal to inspection Ears: hearing grossly normal bilaterally Nose: external nose normal Eyes General: appearance normal, both eyes and all related structures Neck Neck: normal visual inspection Chest Chest: normal inspection of the chest Breast inspection: normal inspection of the breasts Resp Effort & Inspection: normal respiratory effort, able to speak in complete sentences and symmetric chest movement Auscultation: clear to auscultation bilaterally and no rubs Percussion: percussion normal Tactile Fremitus: tactile fremitus absent Cardio Palpation: normal PMI Rate: regular rate Rhythm: regular rhythm Heart Sounds: S1 normal and S2 normal Pulses: brachial pulses present GI Inspection: normal to inspection Palpation: soft and no hepatosplenomegaly Percussion: normal to percussion Auscultation: normal bowel sounds Extrem General: normal to inspection Psych Appearance: grossly normal Mental Status: mental status grossly normal Speech and Movement: speech and movement normal Mood: congruent mood Affect: normal affect Attitude: cooperative Thought Process: normal Thought Content: normal Judgment: judgment good Objective Labs Result Diagrams: 04/14/18 05:20 04/14/18 05:20 Labs: Laboratory Results - last 24 hr 04/13/18 04/14/18 04/14/18 13:25 05:20 05:20 Hgb 14.0 12.7 L Hct 41.4 37.9 L Sodium 141 Potassium 4.1 Chloride 105 Carbon Dioxide 27 BUN 8 L Creatinine 1.00 Estimated GFR > 60.0 BUN/Creatinine Ratio 8.0 Glucose 93 Calcium 8.4 Discharge Plan Discharge Plan Patient Disposition: Home Discharge Med Rec/Prescriptions Prescriptions: Continue clobetasol [Temovate] 0.05 % cream 0.05 % Topical BID Qty: 30 RF: 1 lisinopril 40 mg tablet 40 mg PO DAILY Qty: 90 RF: 3 tamsulosin [Flomax] 0.4 mg capsule 0.4 mg PO QDAY Qty: 90 RF: 3 simvastatin 40 mg tablet 40 mg PO BEDTIME RF: 0 Follow up/Referrals: Donald Jasmine MD [Primary Care Provider] - 1 Week (Will need diagnostic colonoscopy arranged) Provider Discharge Instructions Diet: Diet as Tolerated Discharge Data Primary Care Provider: Donald Jasmine Attending Provider: Scott Kent Admit Date/Time: 04/12/18 19:15 Quality VTE Deep Vein Thrombosis/Pulmonary Embolism Present on Admission: No
[2018-04-14 12:00] VITALS: BP 142/97; PULSE 66; RESP 18; TEMP 36.7; O2SAT 96
== END 2018-04-14 13:11 | disposition home or self-care (01) ==
LOC: ED 19:13 → AC 19:16
PROVIDERS: Internal Medicine; Admitting Provider Internal Medicine; Emergency Provider Emergency Medicine; Family Provider Family Medicine; PCP Family Medicine; Visit Provider Internal Medicine
DX: K92.1 Melena (principal); D62 Acute posthemorrhagic anemia; I10 Essential (primary) hypertension; Z86.010 Personal history of colon polyps; E78.00 Pure hypercholesterolemia, unspecified; G47.33 Obstructive sleep apnea (adult) (pediatric)
CPT/HCPCS: 36415; 36591; 80048; 80053; 81003; 81015; 83605; 85014; 85018; 85025; 85610; 85730; 86850; 86900; 86901; 96374; 99217; 99220; 99283; 99285; G0378; C9113; J7050

== ENCOUNTER 2018-05-21 06:35 | Day surgery (SDC) | payer OTHER, SELFPAY ==
[2018-04-15 09:03] VITALS: BMI 25.6
--- NOTE | 2018-05-21 | PATH_ITS ---
[facility] Accession Number: [id number] . 01 Material submitted: . SIGMOID COLON POLYP AT 30CM . 02 Diagnosis: Sigmoid Colon Polyp at 30 cm: Inflammatory polyp. MRV/05/22/2018 . 02 Electronically signed: . Hao León MD, PhD, Pathologist NPI- [id number] . 01 Gross description: . Received in one formalin-filled container labeled with the patient's name and labeled sigmoid colon polyp at 30 cm, are multiple less than 0.1 cm to 0.3 cm portions of tissue, entirely submitted in one cassette. ([id number]) /FRR . 02 Pathologist provided ICD-10: K51.40 . 02 CPT . 455309 Performed at: 01 [facility] [address] [place] [address], [place], [place] [id number] MD Tung Allen MD Phone: [phone] Performed at: 02 [facility] [address] [place], [place] [id number] MD Mary Ann Orr MD Phone: [phone]
[2018-05-21 07:09] VITALS: BP 125/82; PULSE 83; RESP 16; TEMP 37.2; O2SAT 98; BMI 25.2
--- NOTE | 2018-05-21 08:19 | PM.PREOP ---
Pre-operative Note Interval Note Pre-op Check: Yes History & Physical Reviewed by Physician and Yes Exam Performed Changes: No ASA Class (for procedural sedation): II
[2018-05-21] MEDS: MIDAZOLAM 5 MG/5 ML VIAL IV (08:51)
[2018-05-21] MEDS: fentaNYL 250 MCG/5 ML INJ IV (08:52)
--- NOTE | 2018-05-21 09:04 | PM.OP.ENDO ---
Operative Date/Time/Diagnoses Date of procedure: 05/21/18 Time of procedure: 09:05 Pre-op diagnosis: Rectal bleeding. Last colonoscopy 4 and half years ago. Post-op diagnosis: same (Extensive sigmoid diverticulosis. A single polypoid lesion that may be inflammatory at the edge of a diverticulum at 30 cm. Hemorrhoids.) Procedure & Clinicians Study performed: Colonoscopy with cold biopsy Same procedure as scheduled: Yes Indications: Rectal bleeding Surgeon: James Brian Procedure Notes SCOAP/Timeout: Performed Procedure in detail: The patient was placed in the left lateral decubitus position and underwent IV sedation directed by the surgeon consisting of fentanyl and Versed. Digital exam was remarkable for visible hemorrhoids and a slightly boggy he prostate. The scope was inserted and advanced through the rectum into the sigmoid colon were I noted extensive diverticulosis. One of the diverticuli had a polypoid lesion right at its edge. It did not have the appearance of a neoplasm but rather seemed inflammatory. In any event multiple biopsies were taken to remove it. We continued on the into the descending, transverse, and ascending colon. The patient was repositioned in a stiffener placed and pressure was applied in order to make our way into the cecum.. The cecum was reached identified by the ileocecal valve and the appendiceal opening. The scope was gradually brought out. No other Polyps were found. The scope ultimately was retroflexed in the rectum. The appearance was notable for no visible significant hemorrhoidal disease at that point. However, as I slowly brought the scope through the rectum in anus I did note hemorrhoids right near the anal verge. The scope was removed and the patient tolerated the procedure well Scope withdrawal time: 10 min Sedation minutes: 30 Findings: diverticulosis (Sigmoid), internal hemorrhoids and polyp (30 cm from the anal verge) Specimen(s): other (Polyp) Complications: none Recommendations: Colonscopy in 5 years Follow up: as needed Disposition: PACU
[2018-05-21 09:10] VITALS: BP 117/80; PULSE 76; RESP 18; TEMP 36.4; O2SAT 95
[2018-05-21 09:15] VITALS: BP 111/72; PULSE 72; RESP 13; TEMP 36.4; O2SAT 94
[2018-05-21 09:22] VITALS: BP 104/71; PULSE 70; RESP 11; TEMP 36.4; O2SAT 94
[2018-05-21 09:45] VITALS: BP 114/87; PULSE 79; RESP 16; TEMP 36.4; O2SAT 96
== END 2018-05-21 09:45 | disposition home or self-care (01) ==
PROVIDERS: Family Provider Family Medicine; PCP Family Medicine; Visit Provider Specialist
PROC: 0DJD8ZZ Inspection of Lower Intestinal Tract, Via Natural or Artificial Opening Endoscopic (ICD-10-PCS; CPT 45378; principal; 2018-05-21 07:45)
DX: K62.5 Hemorrhage of anus and rectum (principal); G47.33 Obstructive sleep apnea (adult) (pediatric); I10 Essential (primary) hypertension; K57.30 Diverticulosis of large intestine without perforation or abscess without bleeding; K64.8 Other hemorrhoids; K51.40 Inflammatory polyps of colon without complications
CPT/HCPCS: 45380; 99152; 99153; J2250; J3010

== ENCOUNTER → 2019-02-17 07:42 | Outpatient (CLI) | payer MEDICARE, OTHER, SELFPAY ==
[2018-04-15 09:03] VITALS: BMI 25.6
[2019-02-17 09:02] LABS: Add Manual Diff / Slide Review NO; Basophils Absolute Auto 100 /uL (0-100); Basophils Percent Auto 1.2 % (0-2); Eosinophils Absolute Auto 100 /uL (0-450); Eosinophils Percent Auto 1.4 % (2-4); Hematocrit 43.4 % (41-53); Hemoglobin 14.8 g/dL (13.5-17.5); Lymphocytes Absolute Auto 2300 /uL (1100-4500); Lymphocytes Percent Auto 32.8 % (25-40); Mean Corpuscular HGB Conc 34.2 % (30-36); Mean Corpuscular Hemoglobin 29.8 PG (26-34); Mean Corpuscular Volume 87.2 fL (80-100); Monocytes Absolute Auto 600 /uL (0-900); Monocytes Percent Auto 8.6 % (3-14); Neutrophils Absolute Auto 3800 /uL (1500-7000); Platelet Count 255 X10^3/uL (150-400); Red Blood Cell Count 4.97 X10^6/uL (4.5-5.9); Red Cell Distribution Width 13.4 % (11.6-14.8); White Blood Cell Count 6.9 X10^3/uL (4.5-11.0)
[2019-02-17 09:16] LABS: Alanine Aminotransferase 23 IU/L (21-72); Albumin 4.3 g/dL (3.5-5.0); Albumin Globulin Ratio 1.3 (1.0-2.8); Alkaline Phosphatase 77 U/L (38-126); Aspartate Aminotransferase 30 IU/L (17-59); Bilirubin Total 0.4 mg/dL (0.2-1.3); Blood Urea Nitrogen 17 mg/dL (9-20); Calcium 9.2 mg/dL (8.4-10.2); Carbon Dioxide 29 mmol/L (22-32); Chloride 103 mmol/L (98-107); Cholesterol 144 mg/dL (140-199); Estimated Glomerular Filt Rate > 60.0 mL/min (>60); Globulin 3.2 g/dL (1.7-4.1); Glucose 90 mg/dL (80-110); HDL Cholesterol 47 mg/dL (40-60); HEMOLYSIS < 15 (0-50); LDL Cholesterol Calculated 72 mg/dL (<100); Potassium 4.6 mmol/L (3.4-5.1); Sodium 142 mmol/L (137-145); Total Protein 7.5 g/dL (6.3-8.2); Triglycerides 126 mg/dL (35-150)
[2019-02-17 09:40] LABS: Prostate Specific Antigen Scrn 7.48 ng/mL (0.1-4.0)
[2019-02-17 09:57] LABS: TSH w/ Reflex to FT4 1.59 uIU/mL (0.47-4.68)
== END ==
PROVIDERS: Family Provider Urology; PCP Family Medicine; Visit Provider Family Medicine
DX: I10 Essential (primary) hypertension (principal); E78.5 Hyperlipidemia, unspecified; Z12.5 Encounter for screening for malignant neoplasm of prostate
CPT/HCPCS: 36415; 80053; 80061; 84443; 85025; G0103

== ENCOUNTER → 2020-02-18 07:23 | Outpatient (CLI) | payer MEDICARE, OTHER, SELFPAY ==
[2018-04-15 09:03] VITALS: BMI 25.6
[2020-02-18 08:38] LABS: Add Manual Diff / Slide Review NO; Basophils Absolute Auto 100 /uL (0-100); Eosinophils Absolute Auto 100 /uL (0-450); Eosinophils Percent Auto 1.7 % (2-4); Hematocrit 43.2 % (41-53); Hemoglobin 14.7 g/dL (13.5-17.5); Lymphocytes Absolute Auto 2600 /uL (1100-4500); Lymphocytes Percent Auto 33.4 % (25-40); Mean Corpuscular Hemoglobin 30.1 PG (26-34); Mean Corpuscular Volume 88.6 fL (80-100); Monocytes Absolute Auto 700 /uL (0-900); Monocytes Percent Auto 9.4 % (3-14); Neutrophils Absolute Auto 4200 /uL (1500-7000); Neutrophils Percent Auto 54.5 % (50-75); Platelet Count 269 X10^3/uL (150-400); Red Blood Cell Count 4.87 X10^6/uL (4.5-5.9); Red Cell Distribution Width 13.4 % (11.6-14.8); White Blood Cell Count 7.8 X10^3/uL (4.5-11.0)
[2020-02-18 08:50] LABS: HEMOLYSIS < 15 (0-50)
[2020-02-18 08:58] LABS: Alanine Aminotransferase 25 IU/L (<50); Albumin 4.2 g/dL (3.5-5.0); Albumin Globulin Ratio 1.4 (1.0-2.8); Alkaline Phosphatase 80 U/L (38-126); Aspartate Aminotransferase 25 IU/L (17-59); BUN Creatinine Ratio 15.2 (6-22); Bilirubin Total 0.6 mg/dL (0.2-1.3); Blood Urea Nitrogen 17 mg/dL (9-20); Calcium 9.3 mg/dL (8.4-10.2); Carbon Dioxide 30 mmol/L (22-32); Chloride 103 mmol/L (98-107); Cholesterol 154 mg/dL (140-199); Estimated Glomerular Filt Rate > 60.0 mL/min (>60); Globulin 3.1 g/dL (1.7-4.1); Glucose 83 mg/dL (80-110); HDL Cholesterol 45 mg/dL (40-60); LDL Cholesterol Calculated 72 mg/dL (<100); Potassium 4.3 mmol/L (3.4-5.1); Sodium 140 mmol/L (137-145); Total Protein 7.3 g/dL (6.3-8.2); Triglycerides 186 mg/dL (35-150)
[2020-02-18 09:31] LABS: Thyroid Stimulating Hormone 1.59 uIU/mL (0.47-4.68)
== END ==
PROVIDERS: Family Provider Urology; PCP Family Medicine; Referring Provider Family Medicine; Visit Provider Family Medicine
DX: E78.5 Hyperlipidemia, unspecified (principal); I10 Essential (primary) hypertension
CPT/HCPCS: 36415; 80053; 80061; 84153; 84443; 85025

== ENCOUNTER → 2020-05-05 09:09 | Outpatient (CLI) | payer MEDICARE, OTHER, SELFPAY ==
[2018-04-15 09:03] VITALS: BMI 25.6
--- NOTE | 2020-05-05 09:13 | DI.RAD.S_ITS ---
PROCEDURE: XR CERVICAL SPINE 2V OR 3V INDICATIONS: hand and feet burning and numbness TECHNIQUE: 3 view(s) of the cervical spine were acquired. COMPARISON: None. FINDINGS: Bones: No fractures or dislocations to the C7-T1 level. Degenerative endplate changes throughout cervical spine is seen most prominent at C4-5 and C5-6 levels. The lateral masses of C1 appear intact on the odontoid view. No suspicious bony lesions. Soft tissues: No prevertebral soft tissue swelling. IMPRESSION: Degenerative disc disease throughout cervical spine more prominent at C4-5 and C5-6 levels. No compression fracture or spondylolisthesis. Dictated by: Wu Naylor M.D. on 05/05/2020 at 9:50 Approved by: Wu Naylor M.D. on 05/05/2020 at 9:52
[2020-05-05 10:17] LABS: Hemoglobin A1C% w Est Avg Glu 5.3 % (4.0-6.0)
[2020-05-05 10:23] LABS: Erythrocyte Sedimentation Rate 4 MM/HR (0-15)
[2020-05-05 11:09] LABS: C-Reactive Protein Quant 0.5 mg/dL (<1.0)
[2020-05-05 12:01] LABS: Folate 11.5 ng/mL (2.76-20.0); Vitamin B12 293 pg/mL (239-931)
== END ==
PROVIDERS: Family Provider Urology; PCP Family Medicine; Referring Provider Family Medicine; Visit Provider Family Medicine
DX: M50.321 Other cervical disc degeneration at C4-C5 level (principal); G62.9 Polyneuropathy, unspecified
CPT/HCPCS: 36415; 72040; 82607; 82746; 83036; 85651; 86140

== ENCOUNTER → 2020-08-24 07:07 | Outpatient (CLI) | payer MEDICARE, OTHER, SELFPAY ==
[2018-04-15 09:03] VITALS: BMI 25.6
[2020-08-24 09:24] LABS: Prostate Specific Antigen 7.92 ng/mL (0.10-4.00)
== END ==
PROVIDERS: Family Provider Urology; PCP Family Medicine; Referring Provider Urology; Visit Provider Urology
DX: R97.20 Elevated prostate specific antigen [PSA] (principal)
CPT/HCPCS: 36415; 84153

== ENCOUNTER → 2021-02-21 07:19 | Outpatient (CLI) | payer MEDICARE, OTHER, SELFPAY ==
[2018-04-15 09:03] VITALS: BMI 25.6
[2021-02-21 08:18] LABS: Add Manual Diff / Slide Review NO; Basophils Absolute Auto 100 /uL (0-100); Basophils Percent Auto 0.8 % (0-2); Eosinophils Absolute Auto 100 /uL (0-450); Eosinophils Percent Auto 0.9 % (2-4); Hematocrit 43.2 % (41-53); Hemoglobin 14.6 g/dL (13.5-17.5); Lymphocytes Absolute Auto 2600 /uL (1100-4500); Lymphocytes Percent Auto 34.2 % (25-40); Mean Corpuscular HGB Conc 33.8 % (30-36); Mean Corpuscular Hemoglobin 29.9 PG (26-34); Mean Corpuscular Volume 88.5 fL (80-100); Monocytes Absolute Auto 700 /uL (0-900); Monocytes Percent Auto 9.3 % (3-14); Neutrophils Absolute Auto 4200 /uL (1500-7000); Neutrophils Percent Auto 54.8 % (50-75); Platelet Count 264 X10^3/uL (150-400); Red Blood Cell Count 4.88 X10^6/uL (4.5-5.9); White Blood Cell Count 7.6 X10^3/uL (4.5-11.0)
[2021-02-21 08:32] LABS: Alanine Aminotransferase 25 IU/L (<50); Albumin 4.4 g/dL (3.5-5.0); Albumin Globulin Ratio 1.4 (1.0-2.8); Alkaline Phosphatase 78 U/L (38-126); Aspartate Aminotransferase 28 IU/L (17-59); BUN Creatinine Ratio 13.3 (6-22); Bilirubin Total 0.4 mg/dL (0.2-1.3); Blood Urea Nitrogen 14 mg/dL (9-20); Calcium 9.4 mg/dL (8.4-10.2); Carbon Dioxide 32 mmol/L (22-32); Chloride 106 mmol/L (98-107); Cholesterol 158 mg/dL (140-199); Estimated Glomerular Filt Rate > 60.0 mL/min (>60); Globulin 3.1 g/dL (1.7-4.1); Glucose 89 mg/dL (80-110); HDL Cholesterol 49 mg/dL (40-60); HEMOLYSIS < 15 (0-50); LDL Cholesterol Calculated 83 mg/dL (<100); Potassium 4.3 mmol/L (3.4-5.1); Sodium 142 mmol/L (137-145); Total Protein 7.5 g/dL (6.3-8.2); Triglycerides 132 mg/dL (35-150)
[2021-02-21 09:01] LABS: Prostate Specific Antigen Scrn 9.43 ng/mL (0.1-4.0)
[2021-02-21 09:47] LABS: Creatinine Urine Random 118.8 mg/dL
[2021-02-21 09:50] LABS: Microalbumi Creatinin Ratio Ur 6.7 ug/mg CR (<30); Microalbumin Urine Random 0.8 mg/dL (0-1.6)
== END ==
PROVIDERS: Family Provider Urology; PCP Family Medicine; Referring Provider Family Medicine; Visit Provider Family Medicine
DX: E78.5 Hyperlipidemia, unspecified (principal); I10 Essential (primary) hypertension; R97.20 Elevated prostate specific antigen [PSA]; Z12.5 Encounter for screening for malignant neoplasm of prostate
CPT/HCPCS: 36415; 80053; 80061; 82043; 82570; 85025; G0103

== ENCOUNTER → 2021-09-26 08:19 | Outpatient (CLI) | payer MEDICARE, OTHER, SELFPAY ==
[2018-04-15 09:03] VITALS: BMI 25.6
== END ==
PROVIDERS: Family Provider Urology; PCP Family Medicine; Referring Provider Urology; Visit Provider Urology
DX: R97.20 Elevated prostate specific antigen [PSA] (principal)
CPT/HCPCS: 36415; 84153

== ENCOUNTER → 2022-03-09 07:10 | Outpatient (CLI) | payer MEDICARE, OTHER, SELFPAY ==
[2018-04-15 09:03] VITALS: BMI 25.6
[2022-03-09 09:30] LABS: Add Manual Diff / Slide Review NO; Basophils Absolute Auto 100 /uL (0-100); Basophils Percent Auto 1.3 % (0-2); Eosinophils Absolute Auto 100 /uL (0-450); Eosinophils Percent Auto 1.6 % (2-4); Hematocrit 43.2 % (41-53); Hemoglobin 14.7 g/dL (13.5-17.5); Lymphocytes Absolute Auto 2600 /uL (1100-4500); Lymphocytes Percent Auto 35.9 % (25-40); Mean Corpuscular HGB Conc 34.1 % (30-36); Mean Corpuscular Hemoglobin 29.8 PG (26-34); Mean Corpuscular Volume 87.6 fL (80-100); Monocytes Absolute Auto 700 /uL (0-900); Monocytes Percent Auto 9.6 % (3-14); Neutrophils Absolute Auto 3700 /uL (1500-7000); Neutrophils Percent Auto 51.6 % (50-75); Platelet Count 273 X10^3/uL (150-400); Red Blood Cell Count 4.93 X10^6/uL (4.5-5.9); Red Cell Distribution Width 13.3 % (11.6-14.8); White Blood Cell Count 7.2 X10^3/uL (4.5-11.0)
[2022-03-09 09:51] LABS: Alanine Aminotransferase 22 IU/L (<50); Albumin 4.2 g/dL (3.5-5.0); Albumin Globulin Ratio 1.4 (1.0-2.8); Alkaline Phosphatase 78 U/L (38-126); Aspartate Aminotransferase 26 IU/L (17-59); BUN Creatinine Ratio 13.9 (6-22); Bilirubin Total 0.4 mg/dL (0.2-1.3); Blood Urea Nitrogen 17 mg/dL (9-20); Calcium 9.1 mg/dL (8.4-10.2); Carbon Dioxide 30 mmol/L (22-32); Chloride 102 mmol/L (98-107); Cholesterol 163 mg/dL (140-199); Estimated Glomerular Filt Rate > 60 mL/min (>60); Globulin 3.1 g/dL (1.7-4.1); Glucose 85 mg/dL (80-110); HDL Cholesterol 46 mg/dL (40-60); HEMOLYSIS < 15 (0-50); LDL Cholesterol Calculated 91 mg/dL (<100); Sodium 141 mmol/L (137-145); Total Protein 7.3 g/dL (6.3-8.2); Triglycerides 128 mg/dL (35-150)
[2022-03-09 10:15] LABS: TSH w/ Reflex to FT4 2.31 uIU/mL (0.47-4.68)
== END ==
PROVIDERS: Family Provider Urology; PCP Family Medicine; Referring Provider Family Medicine; Visit Provider Family Medicine
DX: E78.2 Mixed hyperlipidemia (principal); I10 Essential (primary) hypertension; Z12.5 Encounter for screening for malignant neoplasm of prostate; R97.20 Elevated prostate specific antigen [PSA]
CPT/HCPCS: 36415; 80053; 80061; 84443; 85025; G0103

== ENCOUNTER → 2023-04-05 07:16 | Outpatient (CLI) | payer MEDICARE, OTHER, SELFPAY ==
[2018-04-15 09:03] VITALS: BMI 25.6
[2023-04-05 08:19] LABS: Add Manual Diff / Slide Review NO; Basophils Absolute Auto 100 /uL (0-100); Basophils Percent Auto 0.9 % (0-2); Eosinophils Absolute Auto 100 /uL (0-450); Eosinophils Percent Auto 1.3 % (2-4); Hematocrit 42.2 % (41-53); Hemoglobin 14.4 g/dL (13.5-17.5); Lymphocytes Absolute Auto 2500 /uL (1100-4500); Lymphocytes Percent Auto 33.7 % (25-40); Mean Corpuscular HGB Conc 34.2 % (30-36); Mean Corpuscular Volume 87.8 fL (80-100); Monocytes Absolute Auto 700 /uL (0-900); Monocytes Percent Auto 8.7 % (3-14); Neutrophils Absolute Auto 4200 /uL (1500-7000); Neutrophils Percent Auto 55.4 % (50-75); Platelet Count 268 X10^3/uL (150-400); Red Blood Cell Count 4.81 X10^6/uL (4.5-5.9); Red Cell Distribution Width 13.4 % (11.6-14.8); White Blood Cell Count 7.5 X10^3/uL (4.5-11.0)
[2023-04-05 08:44] LABS: Alanine Aminotransferase 26 IU/L (<50); Albumin 4.2 g/dL (3.5-5.0); Albumin Globulin Ratio 1.4 (1.0-2.8); Alkaline Phosphatase 73 U/L (38-126); Aspartate Aminotransferase 28 IU/L (17-59); BUN Creatinine Ratio 13.5 (6-22); Bilirubin Total 0.5 mg/dL (0.2-1.3); Blood Urea Nitrogen 15 mg/dL (9-20); Calcium 8.8 mg/dL (8.4-10.2); Carbon Dioxide 27 mmol/L (22-32); Chloride 104 mmol/L (98-107); Cholesterol 154 mg/dL (140-199); Estimated Glomerular Filt Rate > 60 mL/min (>60); Globulin 3.1 g/dL (1.7-4.1); Glucose 90 mg/dL (80-110); HDL Cholesterol 41 mg/dL (40-60); HEMOLYSIS < 15 (0-50); LDL Cholesterol Calculated 88 mg/dL (<100); Potassium 3.8 mmol/L (3.4-5.1); Sodium 139 mmol/L (137-145); Total Protein 7.3 g/dL (6.3-8.2); Triglycerides 123 mg/dL (35-150)
[2023-04-05 09:13] LABS: TSH w/ Reflex to FT4 2.21 uIU/mL (0.47-4.68)
== END ==
PROVIDERS: Family Provider Urology; PCP Family Medicine; Referring Provider Family Medicine; Visit Provider Family Medicine
DX: I10 Essential (primary) hypertension (principal); E78.5 Hyperlipidemia, unspecified; N40.0 Benign prostatic hyperplasia without lower urinary tract symptoms
CPT/HCPCS: 36415; 80053; 80061; 84443; 85025

== ENCOUNTER 2023-05-08 06:48 | Day surgery (SDC) | payer MEDICARE, OTHER, SELFPAY ==
[2018-04-15 09:03] VITALS: BMI 25.6
--- NOTE | 2023-05-08 | PATH_ITS ---
[facility] Accession Number: [id number] No. of containers..01 Tissue . 01 Material submitted: . colon - ASCENDING POLYP . 01 Diagnosis: Ascending Colon, Polyp: Tubulovillous adenoma. No evidence of malignancy or high-grade dysplasia. MRV 05/16/2023 1744 Local . 01 Electronically signed: . Mary Ann Orr MD, Pathologist NPI- [id number] . 01 Gross description: . ASCENDING POLYP : Received in formalin are multiple fragment(s) of polo, soft tissue measuring 0.2 x 0.2 x 0.2 cm to 0.6 x 0.6 x 0.5 cm submitted entirely in 1 cassette(s) /DAVID 05/09/2023 1835 Local . 01 Pathologist provided ICD-10: D12.2 . 01 CPT . 595177 Specimen Comment: A courtesy copy of this report has been sent to [phone] Performed at: 01 [facility] [address] [place] [address], [place], [place] [id number] MD Tung Allen MD Phone: [phone]
[2023-05-08 07:05] VITALS: BMI 27.4
[2023-05-08 07:08] VITALS: BP 167/99; PULSE 72; RESP 17; TEMP 36.3; O2SAT 97
[2023-05-08] MEDS: LACTATED RINGERS 1,000 ML 42 ML IV (07:18)
--- NOTE | 2023-05-08 07:41 | PM.HP.1 ---
History of Present Illness History of Present Illness Date Patient Seen: 05/08/23 Chief complaint: Screening Colonoscopy Narrative: 67-year-old male personal history of colonic polyps here for screening colonoscopy. Last colonoscopy 5 years ago. No family history of intestinal malignancy. No abdominal concerns today including of the abdominal pain, unintentional weight loss, blood per rectum. [facility] Medical History Overweight (BMI 25.0-29.9) Right inguinal hernia HTN (hypertension) Allergic rhinitis, unspecified (01/09/11) History of adenomatous polyp of colon History of kidney stones Right-sided sensorineural hearing loss Macular degeneration Essential hypertension Plantar warts Shingles (~1997) Mumps Measles Chicken pox Retinal detachment (~2006) Kidney stones (~1987) Hemorrhoid (~1989) Elevated prostate specific antigen (PSA) (02/19/17) Benign prostatic hyperplasia (01/10/11) Hyperlipidemia (01/09/11) Surgical History Anesthesia Lipoma (~02/07/96) H/O prostate biopsy (~02/05/10) History of tonsillectomy Family History Child Age: 41 Raynauds syndrome Father Age: 96 Dementia Mother Cancer Heart disease Hypertension High cholesterol Sister Age: 74 High cholesterol Social History marital status: household members: spouse occupational status: previously employed Smoking Status: Never smoker alcohol intake: current substance use type: does not use Meds Home Medications and Allergies Home Medications Medication Instructions Recorded Confirmed Type clobetasol 0.05 % topical cream 0.05 % topical BID ##30 02/20/18 03/19/23 Rx (Temovate) cholecalciferol (vitamin D3) 125 125 mcg PO DAILY 02/26/20 05/08/23 History mcg (5,000 unit) capsule fexofenadine 180 mg tablet 180 mg PO DAILY PRN Allergy 02/26/20 05/08/23 History (Miriam Allergy) Symptoms tamsulosin 0.4 mg capsule (Flomax) 0.4 mg PO QDAY #90 caps 02/14/21 05/08/23 Rx simvastatin 40 mg tablet See Rx Instructions .Route 05/16/22 05/08/23 Rx .COMPLEX #90 tabs lisinopril 40 mg tablet 40 mg PO DAILY #90 tabs 03/15/23 05/08/23 Rx cyanocobalamin (vitamin B-12) 1,000 mcg PO DAILY recommended for 03/19/23 05/08/23 History 1,000 mcg tablet (Vitamin B-12) carpel-tunnel Allergies Allergy/AdvReac Type Severity Reaction Status Date / Time No Known Drug Allergies Allergy Verified 05/08/23 07:02 Exam Vital Signs (past 8 hours): - 05/08/23 07:08 Temperature 97.3 F L Pulse Rate 72 Respiratory Rate 17 Blood Pressure 167/99 H Pulse Oximetry 97 Oxygen Delivery Method Room Air Oxygen Delivery Method Room Air Narrative Exam Narrative: General adult man alert oriented no acute distress Chest nonlabored respiration Extremities warm well perfused Assessment & Plan Assessment and plan (1) Personal history of colonic polyps: Status: Acute Assessment & Plan narrative: The patient requires colorectal screening and colonoscopy is recommended. Technical details were discussed. Risks, benefits, alternatives explained. Risks including but not limited to myocardial infarction, aspiration, bleeding, pain, missed lesion, incomplete examination, need for further radiographic studies, colonic perforation, and need for major abdominal surgery were discussed. All questions were answered to their satisfaction, and they are in agreement with this plan.
[2023-05-08 08:05] VITALS: BP 155/96; PULSE 62; RESP 15; TEMP 37.1; O2SAT 93
[2023-05-08 08:10] VITALS: BP 136/83; PULSE 62; RESP 18; O2SAT 94
--- NOTE | 2023-05-08 08:10 | P.OP.COLON_ITS ---
Operative Date/Time/Diagnoses Date of procedure: 05/08/23 Time of procedure: 08:10 Pre-op diagnosis: Personal history of colonic polyps Post-op diagnosis: other (Colonic polyp x1) Procedure & Clinicians Study performed: Colonoscopy and polypectomy Same procedure as scheduled: Yes Indications: 67-year-old male personal history of colonic polyps here for screening colonoscopy. Surgeon: Trevor Dahl Procedure Notes Procedure in detail: The history and physical was performed/updated and the patient is ASA class is 2. The procedure was discussed in detail with the patient. Potential risks complications including infection, bleeding, missed diagnosis, perforation, need for surgery, and were explained. Their questions were answered and informed consent was obtained. Patient was brought to the procedure room and placed standard monitoring equipment. The patient's vital signs were monitored continuously throughout the entire procedure. Prior to starting time-out was performed. The patient was placed in the left lateral recumbent position. Procedural sedation was administered by anesthesia. Examination began with a thorough inspection of the perianal area there was no evidence of fissures, fistulae, external hemorrhoids or cutaneous malignancy. The colonoscopy scope was then placed into the anal canal and was advanced to the cecum, which was identified by the ileocecal valve, the appendiceal orifice and the confluence of the taenia. The scope was then slowly withdrawn examining colon thoroughly in all directions, irrigating it of any residual stool. The scope was retroflexed within the rectum The patient tolerated the procedure well. They will be discharged once criteria are met. The prep was of fair quality. The withdrawl time was 7 minutes. FINDINGS * Ascending colon-8 mm polyp removed with cold snare. * Montiel diverticulosis Specimen(s): other (Ascending colon polyp) Impression: Colonic polyp x1 Post-procedure Recommendations: High fiber diet Plan for aftercare: Follow-up is dependent on pathology findings likely 5 years. Disposition: same day surgery
[2023-05-08 08:15] VITALS: BP 132/86; PULSE 65; RESP 17; O2SAT 98
[2023-05-08 08:27] VITALS: BP 137/83; PULSE 64; RESP 12; O2SAT 95
== END 2023-05-08 08:33 | disposition home or self-care (01) ==
PROVIDERS: Family Provider Urology; PCP Family Medicine; Referring Provider Surgery; Visit Provider Surgery
PROC: 0DJD8ZZ Inspection of Lower Intestinal Tract, Via Natural or Artificial Opening Endoscopic (ICD-10-PCS; CPT 45378; principal; 2023-05-08 07:45)
DX: Z12.11 Encounter for screening for malignant neoplasm of colon (principal); Z86.010 Personal history of colon polyps; K57.30 Diverticulosis of large intestine without perforation or abscess without bleeding; D12.2 Benign neoplasm of ascending colon
CPT/HCPCS: 45385; J2704

== ENCOUNTER 2023-06-23 10:32 | Emergency (ER) | payer MEDICARE, OTHER, SELFPAY ==
[2018-04-15 09:03] VITALS: BMI 25.6
[2023-06-23 10:39] VITALS: PULSE 74; O2SAT 96
[2023-06-23 10:41] VITALS: BP 170/93; PULSE 79; RESP 18; TEMP 36.6; O2SAT 97; BMI 27.4
--- NOTE | 2023-06-23 10:45 | DI.CT.S_ITS ---
PROCEDURE: CT HEAD/BRAIN WO CON INDICATIONS: GLF/HEAD INJURY TECHNIQUE: Noncontrast 4.5 mm thick angled axial sections acquired from the foramen magnum to the vertex, with coronal and sagittal reformats. For radiation dose reduction, the following was used: automated exposure control, adjustment of mA and/or kV according to patient size. COMPARISON: None. FINDINGS: Image quality: Diagnostic. CSF spaces: Basal cisterns are patent. No extra-axial fluid collections. Ventricles are normal in size and shape. Brain: No midline shift. No intracranial masses or hemorrhage. Cruz-white matter interface is normal. Skull and face: Calvarium and visualized facial bones are intact, without suspicious lesions. Sinuses: Right maxillary sinus opacification with atelectasis and osseous wall thickening IMPRESSION: No intracranial hemorrhage or mass effect. Chronic right maxillary mucosal sinus disease Approved by: Eladio Figueroa M.D. on 06/23/2023 at 10:12
--- NOTE | 2023-06-23 10:45 | DI.CT.S_ITS ---
PROCEDURE: CT CERVICAL SPINE WO CON INDICATIONS: GLF/HEAD INJURY TECHNIQUE: Noncontrast 3 mm thick sections acquired from the skull base to the T4 level. Sagittal and coronal reformats were then constructed. For radiation dose reduction, the following was used: automated exposure control, adjustment of mA and/or kV according to patient size. COMPARISON: None. FINDINGS: Image quality: Excellent. Bones: No fractures or dislocations. Visualized superior ribs are intact. Degenerative disc disease and arthropathy at C3-4, C4-5 and C5-6. No significant stenosis present. Soft tissues: Prevertebral soft tissues are normal in thickness. No paravertebral hematomas. No apical pneumothoraces. IMPRESSION: Degenerative disc disease and arthropathy without fracture or traumatic malalignment Approved by: Eladio Figueroa M.D. on 06/23/2023 at 10:15
[2023-06-23 10:57] VITALS: BP 149/80; PULSE 65; O2SAT 96
[2023-06-23 11:00] VITALS: BP 146/82; PULSE 63; O2SAT 95
--- NOTE | 2023-06-23 11:20 | ED.GENADULT ---
HPI - General Adult General Chief complaint: Fall Stated complaint: slipped on ice and hit head. not on thinners Time Seen by Provider: 06/23/23 10:44 Source: patient Mode of arrival: Ambulatory History of Present Illness HPI narrative: 68-year-old male presents for evaluation after head injury just prior to arrival. Patient was walking when he slipped on ice, striking the right front of his head against the ground. He denies loss of consciousness, denies use of blood thinners. He has a superficial laceration over his right eyebrow. He states that he is up-to-date on his tetanus shot. Related Data Home Medications Medication Instructions Recorded Confirmed cholecalciferol (vitamin D3) 125 125 mcg PO DAILY 02/26/20 05/08/23 mcg (5,000 unit) capsule fexofenadine 180 mg tablet 180 mg PO DAILY PRN Allergy 02/26/20 05/08/23 (Miriam Allergy) Symptoms cyanocobalamin (vitamin B-12) 1,000 mcg PO DAILY recommended for 03/19/23 05/08/23 1,000 mcg tablet (Vitamin B-12) carpel-tunnel Previous Rx's Medication Instructions Recorded clobetasol 0.05 % topical cream 0.05 % topical BID ##30 02/20/18 (Temovate) tamsulosin 0.4 mg capsule (Flomax) 0.4 mg PO QDAY #90 caps 02/14/21 lisinopril 40 mg tablet 40 mg PO DAILY #90 tabs 03/15/23 simvastatin 40 mg tablet 40 mg PO ONCE PM #90 tabs 05/11/23 Allergies Allergy/AdvReac Type Severity Reaction Status Date / Time No Known Drug Allergies Allergy Verified 05/08/23 07:02 Review of Systems Review of Systems Narrative: Negative except as noted above Patient History Medical History Overweight (BMI 25.0-29.9) Right inguinal hernia HTN (hypertension) Allergic rhinitis, unspecified (01/09/11) History of adenomatous polyp of colon History of kidney stones Right-sided sensorineural hearing loss Macular degeneration Essential hypertension Plantar warts Shingles (~1997) Mumps Measles Chicken pox Retinal detachment (~2006) Kidney stones (~1987) Hemorrhoid (~1989) Elevated prostate specific antigen (PSA) (02/19/17) Benign prostatic hyperplasia (01/10/11) Hyperlipidemia (01/09/11) Surgical History Anesthesia Lipoma (~02/07/96) H/O prostate biopsy (~02/05/10) History of tonsillectomy Family History Child Age: 41 Raynauds syndrome Father Age: 96 Dementia Mother Cancer Heart disease Hypertension High cholesterol Sister Age: 74 High cholesterol Social History marital status: household members: spouse occupational status: previously employed Smoking Status: Never smoker alcohol intake: current substance use type: does not use Smoking Status: Never smoker alcohol intake frequency: a few times a month Substance Use Type: does not use Exam Initial Vital Signs Initial Vital Signs: Vital Signs Pulse Rate 74 06/23/23 10:39 Pulse Oximetry 96 06/23/23 10:39 Const: Awake, alert, no acute distress, nontoxic appearing Eyes: PERRL, EOMI, conjunctiva normal Cardiac: regular rate, regular rhythm RESP: unlabored, clear bilaterally, no wheezing Skin: Warm, Dry, 2 cm diameter stellate superficial laceration over right eyebrow Neuro: AO x3, CN II-XII grossly intact, moves all extremities Psych: affect normal, mood normal, not suicidal, not homicidal Course Course Course Narrative: Well-appearing patient with accidental head trauma after a slip and fall. He is up-to-date on his tetanus shot. I offered option of sutures versus glue for the patient's laceration, he stated that he would prefer that the wound be glued. CT imaging negative for acute traumatic findings. Patient's laceration was irrigated and glued, with steri-strips applied. Orders Ordered: ED Orders 06/23/23 10:45 CT cervical spine wo con Stat CT head/brain wo con Stat Vital Signs Vital signs: Vital Signs - 8 hr 06/23/23 10:57 06/23/23 10:57 06/23/23 11:00 Pulse Rate 65 Blood Pressure 149/80 H 146/82 H Pulse Oximetry 96 06/23/23 11:00 06/23/23 11:30 06/23/23 11:30 Pulse Rate 63 64 Blood Pressure 159/88 H Pulse Oximetry 95 97 Discharge Plan Departure Patient Disposition: Home Clinical Impression: Head injury, Forehead laceration Instructions: DI for Laceration Repair-Skin Glue Prescriptions: No Action cyanocobalamin (vitamin B-12) [Vitamin B-12] 1,000 mcg tablet 1,000 mcg PO DAILY cholecalciferol (vitamin D3) 125 mcg (5,000 unit) capsule 125 mcg PO DAILY fexofenadine [Miriam Allergy] 180 mg tablet 180 mg PO DAILY PRN (Reason: Allergy Symptoms) tamsulosin [Flomax] 0.4 mg capsule 0.4 mg PO QDAY Qty: 90 3RF lisinopril 40 mg tablet 40 mg PO DAILY Qty: 90 3RF simvastatin 40 mg tablet 40 mg PO ONCE PM Qty: 90 3RF clobetasol [Temovate] 0.05 % cream 0.05 % Topical BID Qty: 30 1RF Referrals: Donald Jasmine MD [Primary Care Provider] - Stand Alone Forms: Patient Portal/API
[2023-06-23 11:30] VITALS: BP 159/88; PULSE 64; O2SAT 97
== END 2023-06-23 11:50 | disposition home or self-care (01) ==
PROVIDERS: Emergency Provider Emergency Medicine; Family Provider Urology; PCP Family Medicine
DX: S01.81XA Laceration without foreign body of other part of head, initial encounter (principal); W00.0XXA Fall on same level due to ice and snow, initial encounter
CPT/HCPCS: 70450; 72125; 99281; 99283

== ENCOUNTER → 2024-03-20 07:08 | Outpatient (CLI) | payer MEDICARE, OTHER, SELFPAY ==
[2018-04-15 09:03] VITALS: BMI 25.6
[2024-03-20 08:20] LABS: Add Manual Diff / Slide Review NO; Basophils Absolute Auto 100 /uL (0-100); Basophils Percent Auto 1.2 % (0-2); Eosinophils Absolute Auto 100 /uL (0-450); Eosinophils Percent Auto 1.8 % (2-4); Hematocrit 44.4 % (41-53); Hemoglobin 15.1 g/dL (13.5-17.5); Lymphocytes Absolute Auto 2200 /uL (1100-4500); Lymphocytes Percent Auto 30.5 % (25-40); Mean Corpuscular HGB Conc 34.1 % (30-36); Mean Corpuscular Hemoglobin 30.4 PG (26-34); Mean Corpuscular Volume 89.2 fL (80-100); Monocytes Absolute Auto 700 /uL (0-900); Neutrophils Absolute Auto 4200 /uL (1500-7000); Neutrophils Percent Auto 56.5 % (50-75); Platelet Count 261 X10^3/uL (150-400); Red Blood Cell Count 4.97 X10^6/uL (4.5-5.9); Red Cell Distribution Width 13.5 % (11.6-14.8); White Blood Cell Count 7.4 X10^3/uL (4.5-11.0)
[2024-03-20 08:48] LABS: Alanine Aminotransferase 23 IU/L (<50); Albumin 4.5 g/dL (3.5-5.0); Albumin Globulin Ratio 1.6 (1.0-2.8); Alkaline Phosphatase 77 U/L (38-126); Aspartate Aminotransferase 29 IU/L (17-59); Bilirubin Total 0.6 mg/dL (0.2-1.3); Blood Urea Nitrogen 18 mg/dL (9-20); Calcium 9.7 mg/dL (8.4-10.2); Carbon Dioxide 26 mmol/L (22-32); Chloride 104 mmol/L (98-107); Cholesterol 159 mg/dL (140-199); Estimated Glomerular Filt Rate 60 mL/min (>60); Globulin 2.9 g/dL (1.7-4.1); Glucose 87 mg/dL (80-110); HDL Cholesterol 51 mg/dL (40-60); HEMOLYSIS < 15 (0-50); LDL Cholesterol Calculated 89 mg/dL (<100); Potassium 4.8 mmol/L (3.4-5.1); Sodium 140 mmol/L (137-145); Total Protein 7.4 g/dL (6.3-8.2); Triglycerides 94 mg/dL (35-150)
[2024-03-20 09:16] LABS: TSH w/ Reflex to FT4 1.96 uIU/mL (0.47-4.68)
== END ==
LOC: LAB 07:09
PROVIDERS: Family Provider Urology; PCP Family Medicine; Referring Provider Family Medicine; Visit Provider Family Medicine
DX: I10 Essential (primary) hypertension (principal); E78.2 Mixed hyperlipidemia; N40.1 Benign prostatic hyperplasia with lower urinary tract symptoms; R35.0 Frequency of micturition
CPT/HCPCS: 36415; 80053; 80061; 84443; 85025